=== PATIENT | female | born 1970 | race Caucasian/White ===

== ENCOUNTER 2017-09-24 12:06 | Emergency (ER) | payer OTHER ==
--- OUTSIDE RECORDS SUMMARY | 2017-09-24 12:17 | XMS REPORT ---
:1970 Author Organization eClinicalWorks Care Team Providers Name Role Phone Miguel David Provider Role Unavailable Allergies No Known Allergies Problems Problem Type Condition Code Onset Dates Condition Status Problem BMI 45.0-49.9, adult Z68.42 Active Problem History of breast cancer Z85.3 Active Problem Allergic rhinitis, seasonal J30.2 Active Problem Hypothyroidism E03.9 Active Problem Vitamin D deficiency E55.9 Active Problem Elevated LFTs R94.5 Active Problem Benign essential hypertension I10 Active Problem Colon polyp K63.5 Active Problem Depression with anxiety F41.8 Active Problem Obstructive sleep apnea G47.33 Active Assessment BMI 45.0-49.9, adult Z68.42 Active Assessment Colon polyp K63.5 Active Assessment Elevated LFTs R94.5 Active Assessment Depression with anxiety F41.8 Active Assessment Obstructive sleep apnea G47.33 Active Assessment Vitamin D deficiency E55.9 Active Assessment Benign essential hypertension I10 Active Assessment History of breast cancer Z85.3 Active Assessment Hypothyroidism E03.9 Active Medications Medication Code Code Instructions Start End Status Dosage System Date Date Tamoxifen [facility] 99833261927 20 MG Orally Active 1 tablet Citrate Once a day Zestoretic [facility] 19153284752 10-12.5 MG September 09, Active 1 tablet Orally Once a [address] [facility] 46896361553 5 MG Orally Inactive 1 tablet Once a day Blakely Thyroid [facility] 88669383565 120 MG Orally Active 1 tablet Once a day on an empty stomach Nasonex [facility] 32852045509 50 MCG/ACT Active 2 sprays Nasally Once a in each day nostril Vitamin D-[address] [facility] 87224210817 1000 UNIT Active 2 capsule Orally 3 TIMES A day Singulair [facility] 23214200212 10 MG Orally Active 1 tablet Once a day in the evening CPAP Machine [facility] 0 max pressure 9 Active nightly cm of water Blakely Thyroid [facility] 38913706042 90 MG Orally Inactive 1 tablet Once a day on an empty stomach Ferrous ND 01925627091 325 (65 Fe) MG Active 1 tablet Sulfate Orally Once a day Results No Known Results Summary Purpose eClinicalWorks Submission
--- OUTSIDE RECORDS SUMMARY | 2017-09-24 12:17 | XMS REPORT ---
:1970 Author Organization [facility] Address [address] [place] [address] Dr. Muro [address] [place] [address] Care Team Providers Name Role Phone MAURY MOSLEY Unavailable Unavailable Problems This patient has no known problems. Allergies, Adverse Reactions, Alerts This patient has no known allergies or adverse reactions. Medications This patient has no known medications. Results Test Description Test Time Test Comments Text Results Atomic Results Result Comments TISSUE EXAM 2017-02-22 10:02:00 Surgical Pathology Report Case: [id number] Authorizing Provider: Maury Mosley MD Collected: 02/18/2017 0850 Ordering Location: [facility] Received: 02/18/2017 1041 SERVICES Pathologist: Corinne Morales MD Specimens: A) - Breast, Right, right mastectomy scar B) - Breast, Left, left mastectomy scar C) - Mass, left breast A. SKIN, RIGHT BREAST REGION, SCAR, EXCISION: - CICATRIX - FOREIGN BODY GRANULOMATOUS REACTIONB. SKIN, LEFT BREAST REGION, SCAR, EXCISION: - CICATRIX - FOREIGN BODY GRANULOMATOUS REACTIONC. BREAST, LEFT, MASS, EXCISION: - MATURE ADIPOSE TISSUE COMPATIBLE WITH LIPOMA - FOREIGN BODY GRANULOMATOUS REACTION - FAT NECROSIS Signing Pathologist Direct Phone Line: [phone] signed by Corinne Morales MD on 02/22/2017 at 10:02 Nuñez the sections examined from all the specimens, no atypia or malignancy is Identified. A. [id number] B. [id number]. 75438Cbatywi of breast cancer, hypertrophic scarA. Right mastectomy scar. B. Left mastectomy scar. C. Left breast massSpecimen is received in three containers of formalin all labeled with the patient's information.Specimen A: Labeled "right mastectomy scar" consists of an elongated excision of jay-white skin measuring 5 x 0.4 x 0.4 cm. The specimen is unoriented. No suspicious areas are seen. The skin is entirely submitted in A1.Specimen B: Labeled "left mastectomy scar" consists of a linear excision of unoriented jay-white skin measuring 4 x 0.2 x 0.2 cm. No suspicious areas are seen. The specimen is entirely submitted in B1.Specimen C: Labeled "left breast" consists of a 54 gm unoriented breast biopsy measuring 6.5 x 4 x 3 cm. The surface is intact and entirely inked black. The specimen is serially sectioned from one end to the other showing a homogeneous, fat, necrotic cut surface. No other abnormalities are identified. Process Improvement Engineer sections are submitted in C1-C6. CARLOS/cody Hewitt C. Performed. [facility], Department of Pathology, [address] [place] [address], BASIC METABOLIC PANEL 2017-01-31 11:24:00 Test Item Value Reference Range Comments SODIUM (BEAKER) (test 142 meq/L 136-145 cppn=350) POTASSIUM (BEAKER) (test 4.6 meq/L 3.5-5.1 ncep=186) CHLORIDE (BEAKER) (test 108 meq/L 98-107 kfgb=643) CO2 (BEAKER) (test znds=779) 29 meq/L 22-29 BLOOD UREA NITROGEN (BEAKER) 12 mg/dL 7-21 (test lwcw=198) CREATININE (BEAKER) (test 0.84 mg/dL 0.57-1.25 uwoo=288) GLUCOSE RANDOM (BEAKER) 110 mg/dL 70-105 (test fhzh=615) CALCIUM (BEAKER) (test 8.8 mg/dL 8.4-10.2 ekde=664) EGFR (BEAKER) (test 74 mL/min/1.73 sq m ESTIMATED GFR IS NOT fupj=8005) ACCURATE CREATININE CLEARANCE IN PREDICTING GLOMERULAR FILTRATION RATE. ESTIMATED GFR IS NOT APPLICABLE FOR DIALYSIS PATIENTS. CBC (HEMOGRAM ONLY)2017-01-31 10:50:00 Test Item Value Reference Range Comments WHITE BLOOD CELL COUNT (BEAKER) (test gjua=158) 7.2 K/ L 3.5-10.5 RED BLOOD CELL COUNT (BEAKER) (test tqct=163) 3.89 M/ L 3.93-5.22 HEMOGLOBIN (BEAKER) (test wjaj=505) 11.6 GM/DL 11.2-15.7 HEMATOCRIT (BEAKER) (test kbal=955) 36.6 % 34.1-44.9 MEAN CORPUSCULAR VOLUME (BEAKER) (test hnhb=126) 94.1 fL 79.4-94.8 MEAN CORPUSCULAR HEMOGLOBIN (BEAKER) (test 29.8 pg 25.6-32.2 pvnp=142) MEAN CORPUSCULAR HEMOGLOBIN CONC (BEAKER) (test 31.7 GM/DL 32.2-35.5 yhos=307) RED CELL DISTRIBUTION WIDTH (BEAKER) (test 13.1 % 11.7-14.4 hthp=089) PLATELET COUNT (BEAKER) (test mtlt=781) 230 K/CU MM 150-450 MEAN PLATELET VOLUME (BEAKER) (test cymx=631) 9.9 fL 9.4-12.3 NUCLEATED RED BLOOD CELLS (BEAKER) (test 0 /100 WBC 0-0 fxlb=793) TISSUE [id number] 13:13:00Surgical Pathology Report Case: [id number] Authorizing Provider: Maury Mosley MD Collected: 10/01/2016 1206 Ordering Location: [facility] Received: 10/01/2016 1601 SERVICES Pathologist: Corinne Morales MD Specimens: A) - Breast, Right B) -Breast, Left C) - Breast, Left, left breast fat necrosis D) - Breast, Right, right breast fat necrosis E) - Abdomen,abdominal scar A. SKIN, RIGHT BREAST REGION, EXCISION : - SKIN AND DERMIS WITH CICATRIX - FIBROADIPOSE TISSUE B. SKIN, LEFT BREAST REGION, EXCISION: - SKIN AND DERMIS, NO PATHOLOGIC CHANGE C. BREAST, LEFT, FAT NECROSIS EXCISION: - FAT NECROSIS - STROMAL FIBROSIS - SKIN AND DERMIS WITH CICATRIX D. BREAST, RIGHT, FAT NECROSIS EXCISION: - FAT NECROSIS - STROMAL FIBROSIS - SKIN AND DERMIS WITH CICATRIX E. SKIN , ABDOMINAL REGION, EXCISION: - SKIN AND DERMIS WITH ACUTE AND CHRONIC INFLAMMATION AND ABSCESS FORMATION In the sections examined from all specimens , no malignancy is seen. CG/Julio. [id number]. 61805B. 23098W. 71075 E. 09452Qzusnqg of right breast cancer, hypertrophy abdominal scarA. Right breast; B. Left breast; C. Left breast fat necrosis; D. Right breast fat necrosis; E. Abdominal scarAll specimens are received labeled with the patient's information.Specimen A : Received in formalin labeled "breast, right" is a 124 gm, 13.5 x7.0 x 3.5 cm mayes-white to yellow-jay irregular portion of fibroadipose tissue with an attached 12.0x 6.5 cm pale jay wrinkled ellipse of skin. Sectioning reveals predominantly fibroadipose tissue. Nodiscrete masses are identified. Process Improvement Engineer sections are submitted in cassettes A1-A4.Specimen B:Received in formalin labeled "breast, left" is a 10.5 x 4.5 x 0.5 cm pale jay irregular wrinkled portion of skin. Sectioning reveals no discrete masses. Process Improvement Engineer sections are submitted in cassette B1. Specimen C: Received in formalin labeled "breast, left", description "left breast fat necrosis"is a 78 gm, 8.0 x 5.5 x 5.0 cm mayes-white to yellow-jay irregular portion of fibroadipose tissue with an attached 7.1 x 3.0 cm pale jay irregular wrinkled portion of skin. Sectioning reveals yellow-tanfat necrosis. No discrete masses are identified. Process Improvement Engineer sections are submitted in cassettes C1-C4. Specimen D: Received in formalin labeled "breast, right", description "right breast fat necrosis" is a 44 gm, 8.0 x 7.0 x 2.5 cm mayes-white to yellow-jay irregular portion of fibroadipose tissue with an attached 6.0 x 1.0 cm pale jay wrinkled strip of skin. Sectioning reveals yellow-jay fat necrosis. No discrete masses are identified. Process Improvement Engineer sections are submitted in cassettes D1-D4. Specimen E : Received in formalin labeled "abdomen", description "abdominal scar" is a 20.5 x 1.6 cm pale jay wrinkled strip of skin excised to a depth of 2.5 cm. Sectioning reveals focal fat necrosis and light jay mucoid material. No discrete masses are identified. Process Improvement Engineer sections are submitted in cassettes E1-E3. DB/Madan. - E. Performed.BASIC METABOLIC [id number] 16:19:00 Test Item Value Reference Range Comments SODIUM (BEAKER) (test 139 meq/L 136-145 zjoy=923) POTASSIUM (BEAKER) (test 3.9 meq/L 3.5-5.1 jpuc=493) CHLORIDE (BEAKER) (test 110 meq/L 98-107 zwia=033) CO2 (BEAKER) (test 23 meq/L 22-29 vqfa=075) BLOOD UREA NITROGEN 16 mg/dL 7-21 (BEAKER) (test nsjr=507) CREATININE (BEAKER) (test 0.86 mg/dL 0.57-1.25 umno=948) GLUCOSE RANDOM (BEAKER) 94 mg/dL 70-105 (test hoev=993) CALCIUM (BEAKER) (test 8.7 mg/dL 8.4-10.2 zpwh=341) EGFR (BEAKER) (test 72 mL/min/1.73 sq m ESTIMATED GFR IS NOT vnqz=2711) ACCURATE CREATININE CLEARANCE IN PREDICTING GLOMERULAR FILTRATION RATE. ESTIMATED GFR IS NOT APPLICABLE FOR DIALYSIS PATIENTS. CBC (HEMOGRAM ONLY)2016-09-13 16:05:00 Test Item Value Reference Range Comments WHITE BLOOD CELL COUNT (BEAKER) (test gltv=566) 8.3 K/ L 4.0-10.0 RED BLOOD CELL COUNT (BEAKER) (test sifj=121) 3.99 M/ L 4.00-5.00 HEMOGLOBIN (BEAKER) (test cfxs=427) 12.4 GM/DL 12.0-15.0 HEMATOCRIT (BEAKER) (test oast=128) 36.8 % 36.0-45.0 MEAN CORPUSCULAR VOLUME (BEAKER) (test rgrz=125) 92.1 fL 82.0-99.0 MEAN CORPUSCULAR HEMOGLOBIN (BEAKER) (test 31.1 pg 27.0-33.0 hfdu=632) MEAN CORPUSCULAR HEMOGLOBIN CONC (BEAKER) (test 33.8 GM/DL 32.0-36.0 abah=317) RED CELL DISTRIBUTION WIDTH (BEAKER) (test 14.9 % 10.3-14.2 nzqf=698) PLATELET COUNT (BEAKER) (test balc=528) 194 K/CU MM 150-430 MEAN PLATELET VOLUME (BEAKER) (test ucmc=290) 7.4 fL 6.5-10.5 NUCLEATED RED BLOOD CELLS (BEAKER) (test 0 /100 WBC 0-0 luye=180) 0.00
--- OUTSIDE RECORDS SUMMARY | 2017-09-24 12:17 | XMS REPORT | Clinical Summary ---
:1970 Author Organization [facility] Address [address] [place] [address] Care Team Providers Name Role Phone Asked, No Pcp Primary Care Provider Unavailable Allergies Active Allergy Reactions Severity Noted Date Comments Clindamycin Rash Low 10/21/2015 Penicillins 08/25/2015 Found on allergy testing Current Medications Prescription Sig. Disp. Refills Start End Status Date Date amLODIPine (NORVASC) 5 Take 5 mg by Active mg tablet mouth. cream base no.124, Testosterone 0.2% Cream 20 g 1 Active bulk, cream Apply pea size amount to vulva QHS x 2 wks, then twice weekly 7 ARMOUR THYROID 120 mg TK 1 T PO QD OES 1 Active tablet 8 W82-wfcumyhawuek Take 1 tablet by 90 tablet 3 Active calcium-B6 (FOLTX) mouth daily. 8 2-1.13-25 mg tablet tamoxifen (NOLVADEX) Take 1 tablet 90 tablet 3 Active 20 MG chemo tablet (20 mg total) by 8 019 mouth daily for 360 days. levothyroxine Take by mouth. Discontinued (SYNTHROID, LEVOXYL) 018 100 mcg tablet tamoxifen (NOLVADEX) Discontinued 20 MG chemo tablet 6 017 tamoxifen (NOLVADEX) Take 1 tablet 90 tablet 3 20 MG chemo (20 mg total) by 7 018 tabletIndications: mouth daily. 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 methylPREDNISolone Take 4 mg by Discontinued (MEDROL) 4 MG tablet mouth daily. 017 S08-fustlmdkanad Take 1 tablet by 90 tablet 0 Discontinued calcium-B6 (FOLTX) mouth daily. 7 018 2-1.13-25 mg tablet TAMOXIFEN CITRATE Take by mouth. 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 07/08/2017 Office Visit Oncology Shala David MD 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 (Primary Dx) 07/08/2017 Orders Only Oncology Shala David MD 07/08/2017 Telephone Oncology Shala David MD 01/21/2017 Orders Only Oncology Shala David MD 01/21/2017 Telephone Oncology Shala David MD 01/07/2017 Office Visit Oncology Basilio Dewey HER2-negative carcinoma of [place] right breast (Primary Dx) Shala David MD 01/07/2017 Refill Oncology Shala David MD 12/24/2016 Documentation Oncology Jeanine Cohen MA after 09/23/2016 Social History Tobacco Use Types Packs/Day Years Used Date Never Smoker Smokeless Tobacco: Never Used Sex Assigned at Date Recorded Not on file Last Filed Vital Signs Vital Sign Reading Time Taken Blood Pressure 173/82 07/08/2017 9:24 AM CDT Pulse 92 07/08/2017 9:24 AM CDT Temperature 37 C (98.6 F) 07/08/2017 9:24 AM CDT Respiratory Rate - - Oxygen Saturation - - Inhaled Oxygen Concentration - - Weight 123 kg (272 lb 1 oz) 07/08/2017 9:24 AM CDT Height 165.1 cm (5' 5") 07/08/2017 9:24 AM CDT Body Mass Index 45.27 07/08/2017 9:24 AM CDT Plan of Treatment Date Type Specialty Care Team Description 01/15/2018 Office Visit Oncology Shala David MD [address] [place] [address] Health Maintenance Due Date Last Done Comments CERVICAL CANCER SCREENING 1993 INFLUENZA VACCINE 10/30/2017 Procedures Procedure Name Priority Date/Time Associated Comments Diagnosis CBC WITH PLATELET AND Routine 07/08/2017 10:08 Results for this DIFFERENTIAL AM CDT procedure are in the results section. COMPREHENSIVE Routine 07/08/2017 10:08 Results for this METABOLIC PANEL AM CDT procedure are in the results section. CBC WITH PLATELET AND Routine 01/15/2017 12:00 DIFFERENTIAL AM CDT after 09/23/2016 Results CBC with platelet and differential (07/08/2017 10:08 AM)Only the most recent of2 resultswithin the time period is included. WBC 8.4 3.8 - 10.8 Thousand/uL [facility] [place] RBC 4.40 3.80 - 5.10 Million/uL [facility] [place] HGB 12.9 11.7 - 15.5 g/dL [facility] [place] HCT 38.9 35.0 - 45.0 % [facility] [place] MCV 88.4 80.0 - 100.0 fL [facility] [place] MCH 29.3 27.0 - 33.0 pg [facility] [place] MCHC 33.2 32.0 - 36.0 g/dL [facility] [place] RDW 13.4 11.0 - 15.0 % [facility] [place] Platelet count 267 140 - 400 Thousand/uL [facility] [place] MPV 11.6 7.5 - 12.5 fL [facility] [place] Neutrophils, absolute 5,880 1,500 - 7,800 cells/uL [facility] [place] Lymphocytes, absolute 2,041 850 - 3,900 cells/uL [facility] [place] Monocytes, absolute 328 200 - 950 cells/uL [facility] [place] Eosinophils, absolute 118 15 - 500 cells/uL [facility] [place] Basophils, absolute 34 0 - 200 cells/uL [facility] [place] Neutrophils 70 % [facility] [place] Lymphocytes 24.3 % [facility] [place] Monocytes 3.9 % [facility] [place] Eosinophils 1.4 % [facility] [place] Basophils + RC 0.4 % [facility] [place] Narrative Performed At FASTING: UNKNOWN [facility] Resulting Agency Comment Performing Organization Information: Site ID: [id number] Name: [facility] Address: [address] [place] [id number] Director: Gabrielle Parker MD Performing Organization Address City/State/Zipcode Phone Number [facility] [place] [address] [phone] Comprehensive metabolic panel (07/08/2017 10:08 AM) Glucose 139 (H) 65 - 99 mg/dL [facility] Comment: [place] Fasting reference interval For someone without known diabetes, a glucose value >125 mg/dL indicates that they may have diabetes and this should be confirmed with a follow-up test. BUN, whole blood 13 7 - 25 mg/dL [facility] [place] Creatinine 0.84 0.50 - 1.10 mg/dL [facility] [place] EGFR Non-Afr. Senegalese 85 > OR=60 [facility] mL/min/1.73m2 [place] EGFR 98 > OR=60 [facility] mL/min/1.73m2 [place] BUN/creatinine ratio NOT APPLICABLE 6 - 22 (calc) [facility] [place] Sodium 139 135 - 146 mmol/L [facility] [place] Potassium 3.8 3.5 - 5.3 mmol/L [facility] [place] Chloride 102 98 - 110 mmol/L [facility] [place] CO2 27 20 - 31 mmol/L [facility] [place] Calcium 9.0 8.6 - 10.2 mg/dL [facility] [place] Protein 6.8 6.1 - 8.1 g/dL [facility] [place] Albumin, S 3.6 3.6 - 5.1 g/dL [facility] [place] Globulin, total 3.2 1.9 - 3.7 g/dL [facility] (calc) [place] Albumin/globulin ratio 1.1 1.0 - 2.5 (calc) [facility] [place] Total bilirubin 0.3 0.2 - 1.2 mg/dL [facility] [place] Alkaline phosphatase 51 33 - 115 U/L [facility] [place] AST 37 (H) 10 - 30 U/L [facility] [place] ALT 42 (H) 6 - 29 U/L [facility] [place] Narrative Performed At FASTING: UNKNOWN [facility] Resulting Agency Comment Performing Organization Information: Site ID: [id number] Name: [facility] Address: [address] [place] [address] Director: Gabrielle Parker MD Performing Organization Address City/State/Zipcode Phone Number [facility] [place] [address] [place] [address] after 09/23/2016 Insurance Payer Benefit Plan / Group Subscriber ID Type Phone Address [employer] OPEN ACCESS/NETWORK xxxxxxxxxxx HMO Home: [id number] [phone] [address]
--- OUTSIDE RECORDS SUMMARY | 2017-09-24 12:17 | XMS REPORT | Clinical Summary ---
:1970 Author Organization [facility] Address [address] [place] [address] Phone Care Team Providers Name Role Phone Unavailable Primary Care Provider Unavailable Allergies Active Allergy Reactions Severity Noted Date Comments Clindamycin Hives, Rash Low 10/21/2015 Penicillins Hives, Rash Low 08/25/2015 Found on allergy testing Current Medications Prescription Sig. Disp. Refills Start Date End Date Status levothyroxine Take 150 mcg by Active (SYNTHROID, mouth Every LEVOTHROID) 150 morning on an MCG tablet empty stomach. amLODIPine Take 5 mg by Active (NORVASC) 5 MG mouth nightly . tablet MULTIVIT/IRON/FA/K Take by mouth Active /HERB NO.244 daily. (ALIVE WOMEN'S ENERGY ORAL) INTRAUTERINE by Intrauterine Active DEVICE, IUD, IU route. montelukast Take 10 mg by 02/01/20 Discontinued (SINGULAIR) 10 mg mouth nightly. 17 tablet vortioxetine 10 mg Take 10 mg by 02/01/20 Discontinued Tab mouth daily. 17 tamoxifen Take 20 mg by 10/02/19 Discontinued (NOLVADEX) 20 MG mouth 2 (two) 17 tablet times daily. docusate sodium Take 1 capsule 28 capsule 0 10/01/2016 10/16/19 (COLACE) 100 MG (100 mg total) by 17 capsule mouth 2 (two) times daily for 14 days. sennosides 15 mg Take 1 tablet by 14 tablet 0 10/01/2016 10/16/19 Tab tablet mouth nightly for 17 14 days. sulfamethoxazole-t Take 1 tablet 28 tablet 0 10/01/2016 10/16/19 rimethoprim (160 mg of 17 (BACTRIM DS) trimethoprim 800-160 mg per total) by mouth 2 tablet (two) times daily for 14 days. tamoxifen Take 20 mg by 02/19/20 Discontinued (NOLVADEX) 20 MG mouth nightly . 17 tablet Active Problems Problem Noted Date Personal history of malignant neoplasm of breast 02/18/2017 Breast abscess 10/21/2015 Cancer of right female breast (HCC) 09/19/2015 Encounters Date Type Specialty Care Team Description 02/18/2017 Hospital Encounter Maury Thompson MD 02/18/2017 Anesthesia Event Jacinda Mendoza CRNA 02/18/2017 Procedure Pass 02/18/2017 Surgery Donna, REVISION,BREAST Maury Conley MD RECONSTRUCTION 01/31/2017 Hospital Encounter Cardiology Maury Thompson MD 01/31/2017 Hospital Encounter Pre-Admission Melissa Thompson MD 01/31/2017 Anesthesia Event Pre-Admission Chris August MD 01/04/2017 Orders Only General Surgery Aida Lyn 10/01/2016 Hospital Encounter Maury Thompson MD 10/01/2016 Procedure Pass 10/01/2016 Surgery Donna REVISION,SCAR TORSO Maury Conley MD 09/28/2016 Anesthesia Event Galina Shipley after 09/23/2016 Social History Tobacco Use Types Packs/Day Years Used Date Never Smoker Smokeless Tobacco: Never Used Alcohol Use Drinks/Week oz/Week Comments Yes rare Sex Assigned at Date Recorded Not on file Last Filed Vital Signs Vital Sign Reading Time Taken Blood Pressure 132/66 02/18/2017 4:25 PM PHARMACIST IN CHARGE OWNER Pulse 71 02/18/2017 4:25 PM PHARMACIST IN CHARGE OWNER Temperature 36.8 C (98.2 F) 02/18/2017 4:25 PM PHARMACIST IN CHARGE OWNER Respiratory Rate 16 02/18/2017 4:25 PM PHARMACIST IN CHARGE OWNER Oxygen Saturation 96% 02/18/2017 4:25 PM PHARMACIST IN CHARGE OWNER Inhaled Oxygen Concentration - - Weight 125.9 kg (277 lb 8 oz) 01/31/2017 9:55 AM CDT Height 165.1 cm (5' 5") 01/31/2017 9:55 AM CDT Body Mass Index 46.18 01/31/2017 9:55 AM CDT Plan of Treatment Not on file Procedures Procedure Name Priority Date/Time Associated Diagnosis Comments RECONSTRUCTION,ABDOMIN 02/18/2017 8:00 AM History of breast [place] PHARMACIST IN CHARGE OWNER cancer Special Needs (LIPOSUCTION MACHINE) BIOPSY/EXCISION,SOFT TISSUE TORSO 02/18/2017 8:00 AM PHARMACIST IN CHARGE OWNER History of breast ANTERIOR cancer Special Needs (LIPOSUCTION MACHINE) GRAFT,FAT-BREAST 02/18/2017 8:00 AM PHARMACIST IN CHARGE OWNER History of breast cancer Special Needs (LIPOSUCTION MACHINE) REVISION,BREAST RECONSTRUCTION 02/18/2017 8:00 AM PHARMACIST IN CHARGE OWNER History of breast cancer Special Needs (LIPOSUCTION MACHINE) REVISION,BREAST RECONSTRUCTION 10/01/2016 9:30 AM CDT RIGHT BREAST CANCER , HYPERTROPHIED ABDOMINAL SCAR (86466, [id number], 84179H0, 41293E5) REVISION,SCAR TORSO 10/01/2016 9:30 AM CDT RIGHT BREAST CANCER, HYPERTROPHIED ABDOMINAL SCAR (39759, 61808H9, 69761S7, 32700W2) after 09/23/2016 Results Tissue Exam (02/18/2017 8:50 AM)Only the most recent of2 resultswithin the time period is included. Component Value Ref Range Case Report Surgical Pathology Report Case: [id number] Authorizing Provider:Maury hTompson MD Collected: 02/18/2017 0850 Ordering Location: [facility] Received: 02/18/2017 1041 SERVICES Pathologist: Corinne Morales MD Specimens: A) - Breast, Right, right mastectomy scar B) - Breast, Left, left mastectomy scar C) - Mass, left breast DIAGNOSIS A. SKIN, RIGHT BREAST REGION, SCAR, EXCISION: - CICATRIX - FOREIGN BODY GRANULOMATOUS REACTION B. SKIN, LEFT BREAST REGION, SCAR, EXCISION: - CICATRIX - FOREIGN BODY GRANULOMATOUS REACTION C. BREAST, LEFT, MASS, EXCISION: - MATURE ADIPOSE TISSUE COMPATIBLE WITH LIPOMA - FOREIGN BODY GRANULOMATOUS REACTION - FAT NECROSIS Signing Pathologist Direct Phone Line: [phone] COMMENT In the sections examined from all the specimens, no atypia or malignancy is Identified. CPT Code(s) A.43412 B.23029 C.67702 CLINICAL HISTORY History of breast cancer, hypertrophic scar SPECIMEN SOURCE A. Right mastectomy scar. B. Left mastectomy scar. C. Left breast mass GROSS DESCRIPTION Specimen is received in three containers of formalin all labeled with the patient's information. Specimen A: Labeled "right mastectomy scar" consists of an elongated excision of jay-white skin measuring 5 x 0.4 x 0.4 cm. The specimen is unoriented. No suspicious areas are seen. The skin is entirely submitted in A1. Specimen B: Labeled "left mastectomy scar" consists of a linear excision of unoriented jay-white skin measuring 4 x 0.2 x 0.2 cm. No suspicious areas are seen. The specimen is entirely submitted in B1. Specimen C: Labeled "left breast" consists of a 54 gm unoriented breast biopsy measuring 6.5 x 4 x 3 cm. The surface is intact and entirely inked black. The specimen is serially sectioned from one end t o the other showing a homogeneous, fat, necrotic cut surface. No other abnormalities are identified. [employer] sections are submitted in C1-C6. CG /ew MICROSCOPIC DESCRIPTION A. - C. Performed. Professional component was performed [facility], at Department of Pathology, [address] [place] [address], [place] [address], Specimen Performing Laboratory Tissue - Breast, Right; Tissue - Breast, [facility] Left; Tissue - Mass [address] [place] [id number] CBC (Hemogram only) (01/31/2017 10:31 AM) Component Value Ref Range WBC 7.2 3.5 - 10.5 K/L RBC 3.89 (L) 3.93 - 5.22 M/L Hemoglobin 11.6 11.2 - 15.7 GM/DL Hematocrit 36.6 34.1 - 44.9 % MCV 94.1 79.4 - 94.8 fL MCH 29.8 25.6 - 32.2 pg MCHC 31.7 (L) 32.2 - 35.5 GM/DL RDW 13.1 11.7 - 14.4 % Platelets 230 150 - 450 K/CU MM MPV 9.9 9.4 - 12.3 fL nRBC 0 0 - 0 /100 WBC Specimen Performing Laboratory Blood [address] [address] Basic Metabolic Panel (01/31/2017 10:31 AM) Component Value Ref Range Sodium 142 136 - 145 meq/L Potassium 4.6 3.5 - 5.1 meq/L Chloride 108 (H) 98 - 107 meq/L CO2 29 22 - 29 meq/L BUN 12 7 - 21 mg/dL Creatinine 0.84 0.57 - 1.25 mg/dL Glucose 110 (H) 70 - 105 mg/dL Calcium 8.8 8.4 - 10.2 mg/dL EGFR 74Comment: ESTIMATED GFR IS NOT ACCURATE mL/min/1.73 sq m CREATININE CLEARANCE IN PREDICTING GLOMERULAR FILTRATION RATE. ESTIMATED GFR IS NOT APPLICABLE FOR DIALYSIS PATIENTS. Specimen Performing Laboratory Blood [facility] [address] [address] after 09/23/2016
[2017-09-24 12:47] LABS: Absolute Lymphocytes (CBC) 2.9 K/uL (0.7-4.9); Absolute Monocytes 0.5 K/uL (0.1-1.3); Absolute Neutrophil 6.4 K/uL (1.8-8.0); Basophils % 0.8 % (0-1.3); Eosinophils % 1.9 % (0-4.4); Hematocrit 40.8 % (36.0-45.0); Lymphocytes % 28.9 % (15.3-44.8); MCH 29.7 pg (27.0-35.0); MCV 92.1 fL (80-100); MPV 8.7 fL (7.6-11.3); Monocytes % 4.6 % (3.3-12.3); RBC Red Blood Cell Count 4.43 M/uL (3.86-4.86)
[2017-09-24 13:07] LABS: Albumin 3.3 g/dL (3.4-5.0); Bilirubin Direct 0.1 mg/dL (0-0.2); Bilirubin Total 0.5 mg/dL (0.2-1.0); Potassium 4.1 mmol/L (3.5-5.1); Protein, Total 7.6 g/dL (6.4-8.2)
--- NOTE | 2017-09-24 14:49 | RAD REPORT ---
EXAM DESCRIPTION: CT - Abdomen Pelvis W Contrast - 09/24/2017 2:30 pm CLINICAL HISTORY: Right lower quadrant pain, nausea, history of breast cancer and hypertension, prio r mastectomy and hernia repair COMPARISON: CT study May 2013 TECHNIQUE: Biphasic, helical CT imaging of the abdomen and pelvis was performed following 100 ml non -ionic IV contrast. No oral contrast administered. All CT scans are performed using dose optimization technique as appropriate and may include automated exposure control or mA/KV adjustment according to patient size. FINDINGS: No suspicious findings in the lung bases. No pericardial thickening or effusion. The liver, spleen, and pancreas show no focal findings. Liver shows a mild diffuse fatty infiltration . No gallbladder or biliary tree abnormality. Gallstones can be occult on CT imaging. Symmetric renal function is seen with no hydronephrosis or suspicious renal mass. No pyelonephritis o r acute renal parenchymal process seen. No focal abnormality of the contracted urinary bladder. IUD i s in place within a normal sized uterus. Numerous nabothian cysts are present. No suspicious left ova lavon finding. Right ovary contains several cysts or follicles largest 2.1 cm. No cyst rupture or hemo rrhage identifiable. Right ovary is only slightly more prominent than seen in 2014. No dilated bowel loops or bowel wall thickening. Appendix is normal. No free air or pneumatosis. No f ree fluid. No peritoneal or retroperitoneal infectious/inflammatory stranding. No mass or bulky lymp hadenopathy. Postsurgical changes are noted from lower abdominal wall hernia repair. Approximately 4. 5 centimeter area of fatty tissue is extending through the abdominal wall. This is partially covered by the mesh material. A congested or edematous appearance is seen in the deep subcutaneous fatty tiss ues along each lateral mid and lower abdomen. No adrenal abnormality. No acute or destructive bone process. IMPRESSION: No appendicitis or other acute GI process identifiable. Right ovary contains several cysts up to 2.1 cm in size. No cyst rupture or hemorrhage changes identi fiable. Postsurgical changes are noted from prior hernia repair in the lower abdominal wall. There is a midli ne hernia defect still present but appears to be covered by the mesh material. This is approximately 4-5 cm in size. This is doubtful as a source of right lower quadrant pain symptoms. Nonspecific congestion or edema in the deep subcutaneous fat over each lateral lateral margin of the abdomen. Deeper oblique musculature shows no hematoma or mass. Mild fatty infiltration of the liver. No acute gallbladder or biliary tree finding seen.
[2017-09-24 14:58] LABS: Urine Bacteria <20 /HPF (<20); Urine RBC <5 /HPF (NONE SEEN)
[2017-09-24 15:00] LABS: Urine Culture Reflex Order NOT NEEDED
[2017-09-24 15:03] LABS: Urine Blood NEGATIVE (NEG); Urine Glucose NEGATIVE (NEG); Urine Protein NEGATIVE (NEG); Urine pH 6.5 (5.0-7.0)
--- NOTE | 2017-09-24 16:00 | EDPHYS ---
Physician Documentation [facility] Name: Crissy Mac Age: 47 yrs Sex: Female : 1970 Arrival Date: 09/24/2017 Time: 12:09 Bed 15 Private MD: [facility] ED Physician Gagandeep Smith HPI: 09/24 15:49 This 47 yrs old Female presents to ER via Ambulatory with complaints of gs Abdominal Pain. 15:49 The patient presents with abdominal pain right lower quadrant. Onset: The gs symptoms/episode began/occurred 2 day(s) ago, and became worse and became persistent. Associated signs and symptoms: Pertinent positives: nausea and vomiting, Pertinent negatives: fever. The symptoms are described as constant. Modifying factors: the symptoms are aggravated by touching the area. Severity of pain: At its worst the pain was moderate in the emergency department the pain is unchanged. The patient has experienced similar episodes in the past, a few times. SECURITY ASSISTANT: 12:16 LMP N/A - control method sv Historical: - Allergies: 12:16 PENICILLINS; sv - Home Meds: 12:16 tamoxifen oral oral [Active]; [place] Thyroid Oral [Active]; Lisinopril Oral [Active]; sv - PMHx: 12:16 Breast cancer; Hypertension; Hypothyroidism; sv - PSHx: 12:16 ; Hernia repair; MASTECTOMY; sv - Immunization history:: Adult Immunizations up to date. - Social history:: Smoking status: Patient/guardian denies using tobacco. - Ebola Screening: : No symptoms or risks identified at this time. ROS: 15:49 All other systems are negative. gs Exam: 15:49 Head/Face: Normocephalic, atraumatic. Eyes: Pupils equal round and reactive to light, gs extra-ocular motions intact. Lids and lashes normal. Conjunctiva and sclera are non-icteric and not injected. Cornea within normal limits. Periorbital areas with no swelling, redness, or edema. ENT: Nares patent. No nasal discharge, no septal abnormalities noted. Tympanic membranes are normal and external auditory canals are clear. Oropharynx with no redness, swelling, or masses, exudates, or evidence of obstruction, uvula midline. Mucous membranes moist. Neck: Trachea midline, no thyromegaly or masses palpated, and no cervical lymphadenopathy. Supple, full range of motion without nuchal rigidity, or vertebral point tenderness. No Meningismus. Chest/axilla: Normal chest wall appearance and motion. Nontender with no deformity. No lesions are appreciated. Cardiovascular: Regular rate and rhythm with a normal S1 and S2. No gallops, murmurs, or rubs. Normal PMI, no JVD. No pulse deficits. Respiratory: Lungs have equal breath sounds bilaterally, clear to auscultation and percussion. No rales, rhonchi or wheezes noted. No increased work of breathing, no retractions or nasal flaring. Back: No spinal tenderness. No costovertebral tenderness. Full range of motion. Skin: Warm, dry with normal turgor. Normal color with no rashes, no lesions, and no evidence of cellulitis. MS/ Extremity: Pulses equal, no cyanosis. Neurovascular intact. Full, normal range of motion. Neuro: Awake and alert, GCS 15, oriented to person, place, time, and situation. Cranial nerves II-XII grossly intact. Motor strength 5/5 in all extremities. Sensory grossly intact. Cerebellar exam normal. Normal gait. 15:49 Constitutional: The patient appears alert, awake. 15:49 Abdomen/GI: Palpation: moderate abdominal tenderness, in the right lower quadrant, rebound tenderness, is not appreciated, Indicators: Rovsing's sign is negative. Vital Signs: 12:16 BP 140 / 75; Pulse 83; Resp 18; Temp 97.5; Pulse Ox 98% ; Weight 122.47 kg; Height 5 sv ft. 5 in. (165.10 cm); Pain 3/10; 13:15 BP 114 / 66; Pulse 73; Resp 19; Pulse Ox 98% on R/A; rb1 14:14 BP 111 / 71; Pulse 81; Resp 18; Pulse Ox 99% on R/A; rb1 15:12 BP 121 / 73; Pulse 81; Resp 18; Pulse Ox 97% on R/A; rb1 16:00 BP 119 / 68; Pulse 74; Resp 18; Pulse Ox 99% on R/A; rb1 12:16 Body Mass Index 44.93 (122.47 kg, 165.10 cm) sv MDM: 12:24 Patient medically screened. gs 15:49 Differential diagnosis: appendicitis, non-specific abd pain, pancreatitis. Data gs reviewed: vital signs, nurses notes. Response to treatment: the patient's symptoms have markedly improved after treatment, and as a result, I will discharge patient. 09/24 12:25 Order name: Basic Metabolic Panel; Complete Time: 15: 09/24 12:25 Order name: CBC with Diff; Complete Time: 15: 09/24 12:25 Order name: Hepatic Function; Complete Time: 15: 09/24 12:25 Order name: Lipase; Complete Time: 15: 09/24 12:25 Order name: Urine Microscopic Only; Complete Time: 15: 09/24 14:03 Order name: Urine Dipstick--Ancillary (enter results); Complete Time: 16:03 09/24 12:25 Order name: Urine Test (obtain specimen); Complete Time: 16:58 09/24 12:25 Order name: IV Saline Lock; Complete Time: 12:41 09/24 12:25 Order name: Labs collected and sent; Complete Time: 12:41 09/24 12:25 Order name: Urine Dipstick-Ancillary (obtain specimen); Complete Time: 16:58 09/24 12:25 Order name: CT Abd/Pelvis - W/Contrast; Complete Time: 15: 09/24 14:03 Order name: Urine --Ancillary (enter results); Complete Time: 16:03 09/24 15:03 Order name: US Transvaginal Study (Probe); Complete Time: 16:10 gs Administered Medications: No medications were administered Disposition: 09/24/17 15:59 Discharged to Home. Impression: Right lower quadrant pain. - Condition is Stable. - Discharge Instructions: Abdominal Pain, Adult, Ovarian Cyst, [id number]. - Medication Reconciliation Form, Thank You Letter, Antibiotic Education, Prescription Opioid Use form. - Follow up: Private Physician; When: 2 - 3 days; Reason: Re-evaluation by your physician. Signatures: Dispatcher [facility] Crissy Cortés RN RN Patricia Lechuga RN RN rb1 Gagandeep Smith MD MD gs Corrections: (The following items were deleted from the chart) 15:01 15:00 Urine Culture ordered. [facility] 16:30 15:59 09/24/2017 15:59 Discharged to Home. Impression: Right lower quadrant pain. rb1 Condition is Stable. Forms are Medication Reconciliation Form, Thank You Letter, Antibiotic Education, Prescription Opioid Use. Follow up: Private Physician; When: 2 - 3 days; Reason: Re-evaluation by your physician. gs
--- NOTE | 2017-09-24 16:00 | ER ---
Nurse's Notes [facility] Name: Crissy Mac Age: 47 yrs Sex: Female : 1970 Arrival Date: 09/24/2017 Time: 12:09 Bed 15 Private MD: Miguel David Diagnosis: Right lower quadrant pain Presentation: 09/24 12:14 Presenting complaint: Patient states: RLQ pain, clammy started this morning. c/o sv nausea. Transition of care: patient was not received from another setting of care. Onset of symptoms was September 24, 2017. Care prior to arrival: None. 12:14 Method Of Arrival: Ambulatory sv 12:14 Acuity: JULES 3 sv 12:15 Risk Assessment: Do you want to hurt yourself or someone else? Patient reports no rb1 desire to harm self or others. Initial Sepsis Screen: Does the patient meet any 2 criteria? No. Patient's initial sepsis screen is negative. Does the patient have a suspected source of infection? No. Patient's initial sepsis screen is negative. 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 - Social history:: Smoking status: Patient/guardian denies using tobacco. - Ebola Screening: : No symptoms or risks identified at this time. Screenin:15 Abuse screen: Denies threats or abuse. Nutritional screening: No deficits noted. rb1 Tuberculosis screening: No symptoms or risk factors identified. Fall Risk None identified. Assessment: 12:15 General: Appears uncomfortable, obese, Behavior is calm, cooperative, Reports chills rb1 for 12-24 hours, fever for. Pain: Complains of pain in right lower quadrant Pain radiates to right low back Pain currently is 8 out of 10 on a pain scale. Neuro: Level of Consciousness is awake, alert, obeys commands, Oriented to person, place, time, situation. Cardiovascular: Capillary refill < 3 seconds is brisk in bilateral fingers. Respiratory: Airway is patent Respiratory effort is even, unlabored, Respiratory pattern is regular, symmetrical. GI: Bowel sounds present X 4 quads. Abd is soft Abdomen is tender to palpation in right lower quadrant Reports nausea. : No signs and/or symptoms were reported regarding the genitourinary system. Derm: Skin is pink, warm \T\ dry. 13:12 Reassessment: Patient appears in no apparent distress at this time. No changes from rb1 previously documented assessment. 14:11 Reassessment: Patient appears in no apparent distress at this time. Patient and/or rb1 family updated on plan of care and expected duration. Pain level reassessed. Patient is alert, oriented x 3, equal unlabored respirations, skin warm/dry/pink. 15:00 Reassessment: Patient appears in no apparent distress at this time. No changes from rb1 previously documented assessment. at bedside. 16:00 Reassessment: Patient appears in no apparent distress at this time. Patient and/or rb1 family updated on plan of care and expected duration. Pain level reassessed. Patient is alert, oriented x 3, equal unlabored respirations, skin warm/dry/pink. Vital Signs: 12:16 BP 140 / 75; Pulse 83; Resp 18; Temp 97.5; Pulse Ox 98% ; Weight 122.47 kg; Height 5 sv ft. 5 in. (165.10 cm); Pain 3/10; 13:15 BP 114 / 66; Pulse 73; Resp 19; Pulse Ox 98% on R/A; rb1 14:14 BP 111 / 71; Pulse 81; Resp 18; Pulse Ox 99% on R/A; rb1 15:12 BP 121 / 73; Pulse 81; Resp 18; Pulse Ox 97% on R/A; rb1 16:00 BP 119 / 68; Pulse 74; Resp 18; Pulse Ox 99% on R/A; rb1 12:16 Body Mass Index 44.93 (122.47 kg, 165.10 cm) sv ED Course: 12:09 Patient arrived in ED. rg4 12:10 Miguel David DO is Private Physician. rg4 12:15 Triage completed. sv 12:15 Patient has correct armband on for positive identification. Bed in low position. Call rb1 light in reach. Side rails up X 1. Pulse ox on. NIBP on. 12:17 Gagandeep Smith MD is Attending Physician. gs 12:18 Arm band placed on left wrist. Patient placed in an exam room, on a stretcher. sv 12:26 Radiology exam delayed due to lab results not completed at this time. (BUN/Creatinine) vr test not completed at this time. 12:27 Patricia Aleman, RN is Primary Nurse. rb1 12:40 Initial lab(s) drawn, by me, sent to lab. Inserted saline lock: 18 gauge in left 3 antecubital area, using aseptic technique. Blood collected. 12:50 Radiology exam delayed due to lab results not completed at this time. (BUN/Creatinine). vr 13:28 Radiology exam delayed due to test not completed at this time. vr 14:[address] vr 14:30 CT Abd/Pelvis - W/Contrast In Process Unspecified. EDMS 15:04 Patient taken to ultrasound. via wheelchair. lc3 15:29 US Transvaginal Study (Probe) In Process Unspecified. EDMS 16:30 No provider procedures requiring assistance completed. IV discontinued, intact, rb1 bleeding controlled, No redness/swelling at site. Pressure dressing applied. Administered Medications: No medications were administered Outcome: 15:59 Discharge ordered by MD. gs 16:30 Patient left the ED. rb1 16:30 Discharged to home ambulatory, with family. rb1 16:30 Condition: stable 16:30 Discharge instructions given to patient, Instructed on discharge instructions, follow up and referral plans. Demonstrated understanding of instructions, follow-up care, Prescriptions given X none Signatures: Dispatcher [employer] EDWA Crissy Cortés, Cherri Ledesma RN vr Harish Hernandez Rebecca, RN RN [facility] Sheila [facility] Gagandeep Smith MD MD
--- NOTE | 2017-09-24 16:04 | RAD REPORT ---
EXAM DESCRIPTION: US - Transvaginal Study Probe - 09/24/2017 3:29 pm CLINICAL HISTORY: Pelvic pain, abdominal pain, possible torsion COMPARISON: None. TECHNIQUE: Endovaginal sonography was performed with ovarian Doppler evaluation performed. FINDINGS: Multiple nabothian cysts are identified in the normal sized uterus. Linear echogenicity in the fundal portion of the endometrial cavity corresponds to a known IUD. This appears to be well pos itioned. No suspicious endometrial or myometrial finding. No abnormal fluid collection in the cul-de-sac. Doppler evaluation shows blood flow within the ovarian stroma. No fallopian tube dilatation. Ovarian cysts are present measuring 2.4 cm on the right and 2.2 cm on the left. No aggressive or suspicious c haracteristics. No mass or abnormal fluid collection in either adnexa. . IMPRESSION: Small ovarian cysts are present. No suspicious ovarian or adnexal finding. Torsion is no t suspected. IUD is in place normally positioned within the fundal endometrial cavity. No suspicious uterine findi ng.
== END 2017-09-24 16:30 | disposition home or self-care (01) ==
LOC: ER 12:06
DX: R10.31 Right lower quadrant pain (principal); I10 Essential (primary) hypertension; E03.9 Hypothyroidism, unspecified; Z85.3 Personal history of malignant neoplasm of breast; Z88.0 Allergy status to penicillin
CPT/HCPCS: 36415; 74177; 76830; 80048; 80076; 81003; 81015; 81025; 83690; 85025; 99284; Q9967

== ENCOUNTER 2022-05-26 11:09 | Emergency (ER) | payer OTHER ==
--- OUTSIDE RECORDS SUMMARY | 2022-05-26 11:16 | XMS REPORT | Continuity of Care Document ---
:1970 Author Organization [facility] t Address [address] [place] [address] Care Team Providers Name Role Phone Asked, No Pcp Primary Care Physician Unavailable Miguel David Attending Clinician Unavailable Ryan RM-CNasrin Attending Clinician Khris Galindo MD Attending Clinician Pob, [facility] Main Attending Clinician Unavailable Vickie Mariee MD Attending Clinician VICKIE MARIEE Attending Clinician Unavailable Doctor Unassigned, [place] Attending Clinician Unavailable Ruth, Jay Dobbs Attending Clinician Unavailable Martín Gordon MD Attending Clinician MARTÍN GORDON Attending Clinician Unavailable Meredith Lopez Attending Clinician Unavailable Chantell Mcgraw MD Attending Clinician Sole Delcid Attending Clinician Unavailable CHANTELL MCGRAW Attending Clinician Unavailable ZAHIDA JOHNSON Attending Clinician Unavailable ALISA LARA Attending Clinician Unavailable Pranav RN, Cait Attending Clinician Unavailable Dhruv LEAHY PhD, Myron Attending Clinician Laura Rollins MD Attending Clinician MAURY MOSLEY Attending Clinician Unavailable Meredith Lopez Admitting Clinician Unavailable REGI DAVID Admitting Clinician Unavailable MAURY MOSLEY Admitting Clinician Unavailable Payers Payer Name Policy Type Policy Number Effective Date Expiration Date S [place] [id number] 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 3-29 st positive positive 00:00: Hospit a 00 l Breast Breast Disease Active [facility] abscess [facility] Cancer of Cancer of Disease Active [facility] right right 6-20 [facility] female female 00:00: Medical breast breast 00 Center Cancer of Cancer of Disease Active [employer] lower-inne lower-inne 10-14 Co llege r quadrant r quadrant 00:00: of of female of female 00 Medi estephania breast breast e (HCCode) (HCCode) Hypothyroi Hypothyroi Disease Active [facility] dism due dism due 10-14 Colleg e to to 00:00: of acquired 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 Essential Essential Disease Active [employer] hypertensi hypertensi 7-16 Co llege on on 00:00: of 00 Medicin e [id number] 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 Benign Benign Problem Common essential essential Spir it hypertensi hypertensi - [facility] on on [facility] Polyp Colon Problem Common colon polyp [facility] Vitamin D Vitamin D Problem Com mon deficiency deficiency Sp char [facility] Hypothyroi Hypothyroi Problem C ommon dism dism [facility] [phone] Elevated Problem Comm on LFTs [facility] Allergic Non-season Problem Com mon rhinitis al [facility] allergic - [facility] rhinitis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) [facility] Allergies, Adverse Reactions, Alerts Allergy Allergy Status Severity Reaction(s) Onset Inactive Treating Comm ents Source Name Type Date Date Clinician Clindamy Drug Active Hives, Rash [facility] Allergy [facility] Medical 00 Center Clindamy Propensi Active Rash Method i estephania ty to 10-20 st adverse 00:00: Hospita reaction 00 l s to drug Penicill Propensi Active Found on Meth desiree ins ty to 08-[address] adverse 00:00: testing Hospita reaction 00 l s to drug Penicill Drug Active Hives, Rash Found on C HI [facility] ins Allergy 08-24 allergy [facility] 00:[facility]: testing Medical 00 Center Penicill Propensi Active Found on Meth desiree ins ty to 08-[address] adverse 00:00: testing Hospita reaction 00 l s to drug Penicill DA Active [facility]IN [facility] ins REACTION 10-21 [facility] [place] morphine DA Active MO HALLUCINATE [facility] 10-21 [facility] 00:[facility]: [facility] [place] Penicill DA Active [facility] ins 10-21 [facility] 00:[facility]: [facility] [place] morphine DA Active MO [facility] 10-21 [facility] 00:[facility]: [facility] [place] Mold Propensi Active HEADACHE [facility] ty to 10-13 [place] adverse 00:00: of reaction 00 Medicin s to e substanc e Penicill Propensi Active [facility] ins ty to 15 [place] adverse 00:00: of reaction 00 Medicin s to e drug NO KNOWN Drug Active [facility] ALLERGIE Class ity of S [facility] amoxicil amoxicil Active Unknown Commo all [place] Spirit - [facility] Social History Social Habit Start Date Stop Date Quantity Comments Source Exposure to Not sure [facility] SARS-CoV-2 [place] [facility] (event) Branch History of Common Spirit - Tobacco Use [facility] History SDOH [facility] Alcohol Frequency [facility] History SDOH [facility] Alcohol Std Medical Cente r Drinks History SDOH [facility] Alcohol Binge Medical [place] [address] Alcohol intake 2017-02-19 2017-02-19 Current drinker [facility]00 of [facility] (finding) History SDOH 2017-01-31 2017-01-[address] [facility] Alcohol Comment 00:00:00 00:00:00 Medical C enter Tobacco use and 2015-08-25 2015-08-[address] Maria Elena kes exposure 00:00:00 00:00:00 Medical Center Sex Ass[birth year] At [birth year] [facility] 00:00:00 00:00:00 Smoking Status Start Date Stop Date Source Unknown if ever smoked [facility] Medical [place] Never Smoker Common Spirit - [facility] Medications Ordered Filled Start Stop Current Ordering Indication Dosage Frequency Signature Comments Components Source Medication Medication Date Date Medication? Clinician (SIG) Name Name tamoxifen 2022-0 2022- Yes [id number] 20mg QD Take 1 [facility] (NOLVADEX) 2-15 05-17 tablet (20 st 20 MG chemo 00:00: 04:59 mg total) Hospita tablet 00 :00 by mouth l daily for 90 days. tamoxifen 2021-04- No [id number] 20mg QD Take 1 [facility] (NOLVADEX) 0-26 02-15 tablet (20 st 20 MG chemo 00:00: 00:00 mg total) Hospita tablet 00 :00 by mouth l daily for 90 days. Mounjaro Sachinantoniajaro 2021-04- No Mounjaro 2.5 2.5 0-10 01-07 2.5 MG/0.5ML MG/0.5ML 00:00: 00:00 MG/0.5ML 00 :00 Mounjaro Mounjaro 2021-04- No Mounjaro 2.5 2.5 0-10 01-07 2.5 MG/0.5ML MG/0.5ML 00:00: 00:00 MG/0.5ML 00 :00 Mounjaro Tiffaniejaro 2021-04- No Mounjaro 2.5 2.5 0-10 01-07 2.5 MG/0.5ML MG/0.5ML 00:00: 00:00 MG/0.5ML 00 :00 Mounjaro Tiffaniejaro 2021-04- No Mounjaro 2.5 2.5 0-10 01-07 2.5 MG/0.5ML MG/0.5ML 00:00: 00:00 MG/0.5ML 00 :00 Spironolact Spironolact 2021-04- No 1{table QD Spironolac one 25 MG one 25 MG 010 02-06 t} tone 25 MG 00:00: 00:00 00 :00 Spironolact Spironolact 2021-04- No 1{table QD Spironolac one 25 MG one 25 MG 0-10 02-06 t} tone 25 MG 00:00: 00:00 00 :00 Spironolact Spironolact 2021-04- No 1{table QD Spironolac one 25 MG one 25 MG 0-10 -08 t} tone 25 MG 00:00: 00:00 00 :00 amLODIPine 2021-0 Yes 5mg Take 5 mg Me thodi (NORVASC) 5 9-[address] mg tablet 09:08: Hospita 32 l phentermine 2021-0 Yes 30mg QD Take 30 mg [facility] 30 MG 9-[address] capsule 09:08: every Hospita 32 morning. l predniSONE 2021-0 2021- No 40mg QD Take 2 Meth desiree (DELTASONE) 8- 08-[address] 20 mg 00:00: 04:59 (40 mg Hospita tablet 00 :00 total) by l mouth daily for 5 days. Lisinopril Lisinopril 0 No 1{table QD Lisinopril 10 MG 10 MG 6-28 t} 10 MG 00:00: 00 Lisinopril Lisinopril 2021-0 No 1{table QD Lisinopril 10 MG 10 MG 6-28 t} 10 MG 00:00: 00 spironolact 2021-0 Yes 25mg QD Take 25 mg [facility] one 6-[address] (ALDACTONE) 00:00: daily. Hosp john 25 MG 00 l tablet lisinopriL 0 Yes 10mg QD Take 10 mg M ethodi (PRINIVIL) 6-[address] 10 mg 00:00: daily. Hospita tablet 00 l Phentermine Phentermine 2021- No 1{capsu QD Phentermin HCl 30 MG HCl 30 MG 3-15 05-14 le} e HCl 30 00:00: 00:00 MG 00 :00 iopamidol 2020-2020- No [id number] 100mL 100 mL, Univers (ISOVUE 11-03 08-05 Intravenou ity o f 370-500 mL) 23:45: 22:41 s, ONCE, 1 [place] injection 00 :00 dose, [facility] al 100 mL 11/03/20 at Branch 1845, Routine amLODIPine 2020-0 Yes 5mg Take 5 mg Me thodi (NORVASC) 5 5-[address] mg tablet 16:28: Hospita 25 l phentermine 2020-0 Yes 30mg QD Take 30 mg [facility] 30 MG 5-[address] capsule 16:28: every Hospita 24 morning. l Phentermine Phentermine 2020-0 No 1{capsu QD Phentermin HCl 37.5 MG HCl 37.5 MG 5-04 le} e HCl 37.5 00:00: MG 00 Phentermine Phentermine 2020-0 No 1{capsu QD Phentermin HCl 37.5 MG HCl 37.5 MG 5-04 le} e HCl 37.5 00:00: MG 00 Phentermine Phentermine 2020-0 No 1{capsu QD Phentermin HCl 37.5 MG HCl 37.5 MG 5-04 le} e HCl 37.5 00:00: MG 00 Phentermine Phentermine 2020-0 No 1{capsu QD Phentermin HCl 37.5 MG HCl 37.5 MG 5-04 le} e HCl 37.5 00:00: MG 00 Phentermine Phentermine 2020-0 No 1{capsu QD Phentermin HCl 37.5 MG HCl 37.5 MG 5-04 le} e HCl 37.5 00:00: MG 00 Phentermine Phentermine 2020-0 No 1{capsu QD Phentermin HCl 37.5 MG HCl 37.5 MG 5-04 le} e HCl 37.5 00:00: MG 00 Phentermine Phentermine 2020-0 No 1{capsu QD Phentermin HCl 37.5 MG HCl 37.5 MG 5-04 le} e HCl 37.5 00:00: MG 00 Phentermine Phentermine 2020-0 No 1{capsu QD Phentermin HCl 37.5 MG HCl 37.5 MG 5-04 le} e HCl 37.5 00:00: MG 00 Phentermine Phentermine 2020-0 No 1{capsu QD Phentermin HCl 37.5 MG HCl 37.5 MG 5-04 le} e HCl 37.5 00:00: MG 00 tamoxifen 2019-0 2020- No [id number] 20mg QD Take 1 Meth desiree (NOLVADEX) 12-27 tablet (20 st 20 MG chemo 00:00: 04:59 mg total) Hospita tablet 00 :00 by mouth l daily for 360 days .hormone receptor positive breast cancer. [facility] Yes Miguel 1 tablet Com mon Thyroid Thyroid 12-13 David on an Spirit 00:00: empty - [facility]I [address] sat-saturday [facility] (120+15=13 Medical 5) not on Center sat-sun Hydrochloro Hydrochloro 2019-0 Yes Miguel 1 tablet Common thiazide thiazide 11-17 David Spirit 00:00: - CHI 00 [facility] Lisinopril Lisinopril 2019-0 Yes Miguel 1 tablet Common 11-17 David Spirit 00:00: - [facility]I 00 [facility] lisinopril- 2019-0 Yes 1{tbl} Take 1 Tab Joe hydrochloro 6-11 by mouth Daphnie ege thiazide 18:18: daily. of (PRINZIDE, 25 Medicin ZESTORETIC) e 10-12.5 MG per tablet Cholecalcif Yes Take by [employer] [facility] (D3 6-11 mouth. College ADULT OR) 18:18: of 25 Medicin e thyroid 0 Yes 120mg Take 120 [facility] (ARMOUR 6-11 mg by [place] THYROID) 18:15: mouth of 120 MG 11 daily. Medicin tablet e Vortioxetin 2020- No Take by Roman soriano H[facility] 09-09- mouth. [place] (BRINTELLIX 18:14: 00:00 of ) 10 MG 28 :00 Medicin TABS e montelukast 2020- No 10mg Take 10 mg Joe (SINGULAIR) 09-09 by mouth Col lege 10 MG 18:14: 00:00 daily. of tablet 25 :00 Medicin e amlodipine 2020- No 5mg Take 5 mg B aymarine (NORVASC) 5 09-09 by mouth Col lege MG tablet 18:14: 00:00 daily. of 19 :00 Medicin e levothyroxi 0 2020- No 150ug Take 150 Joe ne -02 04- mcg by [place] (SYNTHROID) 18:14: 00:00 mouth of 150 MCG 16 :00 daily. Medicin tablet e thyroid 0 Yes Take 5 [facility] (ARMOUR 6-11 days a [place] THYROID) 15 00:00: week of MG tablet 00 Medicin e tamoxifen 2019-0 Yes 20mg Take 20 mg Ba agustinor (NOLVADEX) 3-18 by mouth Colle ge 20 MG 00:00: daily. of tablet 00 Medicin e tamoxifen 2020-0 2020- No 20mg QD Take 1 Metho di (NOLVADEX) 318 09-15 tablet (20 st 20 MG chemo 00:00: 04:59 mg total) Hospita tablet 00 :00 by mouth l daily for 180 days. Jovon Nolenalog 2018-0 No 40mg Common (Triamcinol (Triamcinol 6-05 S pirit one) one) 00:00: - CHI 00 [facility] Kenalog Kenalog 2019-0 No 40mg Common (Triamcinol (Triamcinol 6-05 S pirit one) one) 00:00: - CHI 00 [facility] Callumalog Kenalog 2018-0 No 40mg Common (Triamcinol (Triamcinol 6-05 S pirit one) one) 00:00: - CHI 00 [facility] Jovon Kenalog 2018-0 No 40mg Common (Triamcinol (Triamcinol 6-05 S pirit one) one) 00:00: - CHI 00 [facility] Jovon Kenalog 2019-0 No 40mg Common (Triamcinol (Triamcinol 6-05 S pirit one) one) 00:00: - CHI 00 [facility] Jovon Kenalog 2019-0 No 40mg Common (Triamcinol (Triamcinol 6-05 S pirit one) one) 00:00: - CHI 00 [facility] Jovon Kenalog 2019-0 No 40mg Common (Triamcinol (Triamcinol 6-05 S pirit one) one) 00:00: - CHI 00 [facility] miscellaneo 2019-0 Yes [id number] Wear Right [facility] medical 5-[address] supply mis 00:00: compressio Hospita 00 n sleeve l and glove miscellaneo 2019-0 Yes [id number] Wear Right [facility] medical 5-[address] supply mis 00:00: compressio Hospita 00 n sleeve l and glove Callumalog Kenalog 2017- No 40mg Common (Triamcinol (Triamcinol 1-01 S pirit one) one) 00:00: - CHI 00 [facility] Kenalog Kenalog 2017 No 40mg Common (Triamcinol (Triamcinol 1-01 S pirit one) one) 00:00: - CHI 00 [facility] Jovon Sigala 2017-04 No 40mg Common (Triamcinol (Triamcinol 1-01 S pirit one) one) 00:00: - CHI 00 [facility] Jovon Sigala 2017-04 No 40mg Common (Triamcinol (Triamcinol 1-01 S pirit one) one) 00:00: - [facility]I 00 [facility] Jov[facility] 2017-04 No 40mg Common (Triamcinol (Triamcinol 1-01 S pirit one) one) 00:00: - [facility]I 00 [facility] 2017-04 No 40mg Common (Triamcinol (Triamcinol 1-01 S pirit one) one) 00:00: - [facility]I 00 [facility] Jovon 2017-04 No 40mg Common (Triamcinol (Triamcinol 1-01 S pirit one) one) 00:00: - CHI 00 [facility] [id number] Yes 1{tbl} QD Take 1 Me thodi olate 4-[address] calcium-B6 00:00: mouth Hospit a (FOLTX) 00 daily. l 2-1.13-25 mg tablet [id number] Yes 1{tbl} QD Take 1 Me thodi olate 4-[address] calcium-B6 00:00: mouth Hospit a (FOLTX) 00 daily. l 2-1.13-25 mg tablet ARMOUR Yes TK 1 T PO Method i THYROID 120 3-[address] mg tablet 00:00: Hospita 00 l ARMOUR Yes TK 1 T PO Method i THYROID 120 3-[address] mg tablet 00:00: Hospita 00 l levothyroxi 2016-04 Yes 150ug Take [address] ne 1-20 mcg by [facility] (SYNTHROID, 18:11: mouth Medic al LEVOTHROID) 54 Every Center 150 MCG morning on tablet an empty stomach. amLODIPine 2016-04 Yes 5mg QD Take [address] (NORVASC) 5 1-20 by mouth Luke s MG tablet 18:11: nightly . Med ical [address] [place] [address] MULTIVIT/IR 2016-04 Yes QD Take by [facility] St ON/FA/K/HER 1-20 mouth [facility] B NO.244 18:11: daily. Medical ([address] WOMEN'S ENERGY ORAL) INTRAUTERIN 2016-04 Yes by [facility] St E DEVICE, 1-20 Intrauteri Luke s IUD, IU 18:11: ne route. [address] cream base 2016-04- No Testostero Methodi no.124, 0-09 05-14 ne 0.2% st bulk, cream 00:00: 00:00 CreamApply Hospita 00 :00 pea size l amount to vulva QHS x 2 wks, then twice weekly sulfamethox 2019- No 1{tbl} Take 1 Tab Joe azole-trime 06-2511 by mouth Col lege thoprim 00:00: 00:00 two times of (BACTRIM 00 :00 daily. Medicin DS, SEPTRA e DS) 800-160 MG per tablet sulfamethox 2020- No 1{tbl} Take 1 Tab Joe azole-trime 06-21 06-11 by mouth Col lege thoprim 00:00: 00:00 two times of (BACTRIM 00 :00 daily. Medicin DS, SEPTRA e DS) 800-160 MG per tablet minocycline 2015-04 2020- No 100mg Take 1 Tab [facility] (DYNACIN) 1-11 by mouth Colle ge 100 MG 00:00: 00:00 two times of tablet 00 :00 daily. Medicin e sulfamethox 2015-04 2020- No 1{tbl} Take 1 Tab Joe azole-trime 0-11 by mouth Col lege thoprim 00:00: 00:00 two times of (BACTRIM 00 :00 daily. Medicin DS) 800-160 e MG per tablet CPAP CPAP Yes Miguel nightly Common Machine Machine David [facility] Zestoretic Zestoretic Yes Miguel 1 tablet Common David [facility] Metformin Metformin Yes Miguel 1 tablet Common HCl HCl Advid with a Spirit [facility] Nasonex Nasonex Yes Miguel 2 sprays Com mon David in each Spirit nostril - [facility] Tamoxifen Tamoxifen Yes Miguel 1 tablet Common Citrate Citrate David [facility] Ferrous Ferrous Yes Miguel 1 tablet Com mon Sulfate Sulfate David [facility] Singulair Singulair Yes Miguel 1 tablet Common David in the Spirit evening [facility] Hart Hart Yes Miguel TAKE 1 Common Thyroid Thyroid David TABLET BY Spi rit MOUTH - CHI DAILY ON [facility] Vitamin D-3 Vitamin D-3 Yes Miguel 2 capsule Common David [facility] Tamoxifen Tamoxifen No 1{table QD Tamoxifen Citrate 20 Citrate 20 t} Citrate 20 MG MG MG Lisinopril Lisinopril No 1{table QD Lisinopril 10 MG 10 MG t} 10 MG Singulair Singulair No 1{table QD Singulair 10 MG 10 MG t_in_th 10 MG e_eveni ng} metFORMIN metFORMIN No metFORMIN HCl 500 MG HCl 500 MG HCl 500 MG [facility] No Hart Thyroid 15 Thyroid 15 Thyroid 15 MG MG MG hydroCHLORO hydroCHLORO No 1{table QD hydroCHLOR thiazide thiazide t} Othiazide 12.5 MG 12.5 MG 12.5 MG [facility] No 1{table QD Hart Thyroid 120 Thyroid 120 t_on_an Thyroid MG MG _empty_ 120 MG stomach } metFORMIN metFORMIN No 1{table BID metFORMIN HCl 1000 MG HCl 1000 MG t_with_ HCl 1000 a_meal} MG Nasonex 50 Nasonex 50 No 2{spray QD Nasonex 50 MCG/ACT MCG/ACT s_in_ea MCG/ACT ch_nost ril} Ferrous Ferrous No 1{table QD Ferrous Sulfate 325 Sulfate 325 t} Sulfate (65 Fe) MG (65 Fe) MG 325 (65 Fe) MG Vitamin D-3 Vitamin D-3 No 2{capsu TID Vitamin 1000 UNIT 1000 UNIT le} D-3 1000 UNIT Sertraline Sertraline No 1{table QD Sertraline HCl 50 MG HCl 50 MG t} HCl 50 MG CPAP CPAP No CPAP Machine max Machine max Machine pressure 9 pressure 9 max cm of water cm of water pressure 9 cm of water [facility] No 1{table QD Hart Thyroid 15 Thyroid 15 t_on_an Thyroid 15 MG MG _empty_ MG stomach } Zestoretic Zestoretic No 1{table QD Zestoretic 10-12.5 MG 10-12.5 MG t} 10-12.5 MG Lisinopril Lisinopril No 1{table QD Lisinopril 10 MG 10 MG t} 10 MG Tamoxifen Tamoxifen No 1{table QD Tamoxifen Citrate 20 Citrate 20 t} Citrate 20 MG MG MG Nasonex 50 Nasonex 50 No 2{spray QD Nasonex 50 MCG/ACT MCG/ACT s_in_ea MCG/ACT ch_nost ril} Singulair Singulair No 1{table QD Singulair 10 MG 10 MG t_in_th 10 MG e_eveni ng} Zestoretic Zestoretic No 1{table QD Zestoretic 10-12.5 MG 10-12.5 MG t} 10-12.5 MG Ferrous Ferrous No 1{table QD Ferrous Sulfate 325 Sulfate 325 t} Sulfate (65 Fe) MG (65 Fe) MG 325 (65 Fe) MG [facility] No Hart Thyroid 15 Thyroid 15 Thyroid 15 MG MG MG Zestoretic Zestoretic No 1{table QD Zestoretic 10-12.5 MG 10-12.5 MG t} 10-12.5 MG CPAP CPAP No CPAP Machine max Machine max Machine pressure 9 pressure 9 max cm of water cm of water pressure 9 cm of water hydroCHLORO hydroCHLORO No 1{table QD hydroCHLOR thiazide thiazide t} Othiazide 12.5 MG 12.5 MG 12.5 MG metFORMIN metFORMIN No 1{table TID metFORMIN HCl 500 MG HCl 500 MG t_with_ HCl 500 MG a_meal} [facility] No 1{table QD Hart Thyroid 120 Thyroid 120 t_on_an Thyroid MG MG _empty_ 120 MG stomach } [facility] No Hart Thyroid 15 Thyroid 15 Thyroid 15 MG MG MG Vitamin D-3 Vitamin D-3 No 2{capsu TID Vitamin 1000 UNIT 1000 UNIT le} D-3 1000 UNIT Lisinopril Lisinopril No 1{table QD Lisinopril 10 MG 10 MG t} 10 MG hydroCHLORO hydroCHLORO No 1{table QD hydroCHLOR thiazide thiazide t} Othiazide 12.5 MG 12.5 MG 12.5 MG Lisinopril Lisinopril No 1{table QD Lisinopril 10 MG 10 MG t} 10 MG Hart Hart No Hart Thyroid 15 Thyroid 15 Thyroid 15 MG MG MG Singulair Singulair No 1{table QD Singulair 10 MG 10 MG t_in_th 10 MG e_eveni ng} Tamoxifen Tamoxifen No 1{table QD Tamoxifen Citrate 20 Citrate 20 t} Citrate 20 MG MG MG Vitamin D-3 Vitamin D-3 No 2{capsu TID Vitamin 1000 UNIT 1000 UNIT le} D-3 1000 UNIT Zestoretic Zestoretic No 1{table QD Zestoretic 10-12.5 MG 10-12.5 MG t} 10-12.5 MG Nasonex 50 Nasonex 50 No 2{spray QD Nasonex 50 MCG/ACT MCG/ACT s_in_ea MCG/ACT ch_nost ril} metFORMIN metFORMIN No metFORMIN HCl 500 MG HCl 500 MG HCl 500 MG Ferrous Ferrous No 1{table QD Ferrous Sulfate 325 Sulfate 325 t} Sulfate (65 Fe) MG (65 Fe) MG 325 (65 Fe) MG Hart Hart No Hart Thyroid 15 Thyroid 15 Thyroid 15 MG MG MG Hart Hart No 1{table QD Hart Thyroid 120 Thyroid 120 t_on_an Thyroid MG MG _empty_ 120 MG stomach } metFORMIN metFORMIN No 1{table TID metFORMIN HCl 500 MG HCl 500 MG t_with_ HCl 500 MG a_meal} CPAP CPAP No CPAP Machine max Machine max Machine pressure 9 pressure 9 max cm of water cm of water pressure 9 cm of water Zestoretic Zestoretic No 1{table QD Zestoretic 10-12.5 MG 10-12.5 MG t} 10-12.5 MG CPAP CPAP No CPAP Machine max Machine max Machine pressure 9 pressure 9 max cm of water cm of water pressure 9 cm of water Zestoretic Zestoretic No 1{table QD Zestoretic 10-12.5 MG 10-12.5 MG t} 10-12.5 MG Lisinopril Lisinopril No 1{table QD Lisinopril 10 MG 10 MG t} 10 MG Vitamin D-3 Vitamin D-3 No 2{capsu TID Vitamin 1000 UNIT 1000 UNIT le} D-3 1000 UNIT Sertraline Sertraline No 1{table QD Sertraline HCl 50 MG HCl 50 MG t} HCl 50 MG Hart Hart No Hart Thyroid 15 Thyroid 15 Thyroid 15 MG MG MG Zestoretic Zestoretic No 1{table QD Zestoretic 10-12.5 MG 10-12.5 MG t} 10-12.5 MG Ferrous Ferrous No 1{table QD Ferrous Sulfate 325 Sulfate 325 t} Sulfate (65 Fe) MG (65 Fe) MG 325 (65 Fe) MG Nasonex 50 Nasonex 50 No 2{spray QD Nasonex 50 MCG/ACT MCG/ACT s_in_ea MCG/ACT ch_nost ril} metFORMIN metFORMIN No metFORMIN HCl 500 MG HCl 500 MG HCl 500 MG hydroCHLORO hydroCHLORO No 1{table QD hydroCHLOR thiazide thiazide t} Othiazide 12.5 MG 12.5 MG 12.5 MG [facility] No Hart Thyroid 15 Thyroid 15 Thyroid 15 MG MG MG Singulair Singulair No 1{table QD Singulair 10 MG 10 MG t_in_th 10 MG e_eveni ng} Tamoxifen Tamoxifen No 1{table QD Tamoxifen Citrate 20 Citrate 20 t} Citrate 20 MG MG MG Hart Hart No 1{table QD Hart Thyroid 120 Thyroid 120 t_on_an Thyroid MG MG _empty_ 120 MG stomach } Zestoretic Zestoretic No 1{table QD Zestoretic 10-12.5 MG 10-12.5 MG t} 10-12.5 MG Hart Hart No 1{table QD Hart Thyroid 120 Thyroid 120 t_on_an Thyroid MG MG _empty_ 120 MG stomach } Tamoxifen Tamoxifen No 1{table QD Tamoxifen Citrate 20 Citrate 20 t} Citrate 20 MG MG MG Hart Hart No 1{table QD Hart Thyroid 15 Thyroid 15 t_on_an Thyroid 15 MG MG _empty_ MG stomach } hydroCHLORO hydroCHLORO No 1{table QD hydroCHLOR thiazide thiazide t} Othiazide 12.5 MG 12.5 MG 12.5 MG Lisinopril Lisinopril No 1{table QD Lisinopril 10 MG 10 MG t} 10 MG [facility] No Hart Thyroid 15 Thyroid 15 Thyroid 15 MG MG MG CPAP CPAP No CPAP Machine max Machine max Machine pressure 9 pressure 9 max cm of water cm of water pressure 9 cm of water Vitamin D-3 Vitamin D-3 No 2{capsu TID Vitamin 1000 UNIT 1000 UNIT le} D-3 1000 UNIT metFORMIN metFORMIN No metFORMIN HCl 500 MG HCl 500 MG HCl 500 MG Ferrous Ferrous No 1{table QD Ferrous Sulfate 325 Sulfate 325 t} Sulfate (65 Fe) MG (65 Fe) MG 325 (65 Fe) MG Sertraline Sertraline No 1{table QD Sertraline HCl 50 MG HCl 50 MG t} HCl 50 MG Singulair Singulair No 1{table QD Singulair 10 MG 10 MG t_in_th 10 MG e_eveni ng} Nasonex 50 Nasonex 50 No 2{spray QD Nasonex 50 MCG/ACT MCG/ACT s_in_ea MCG/ACT ch_nost ril} metFORMIN metFORMIN No 1{table TID metFORMIN HCl 500 MG HCl 500 MG t_with_ HCl 500 MG a_meal} Tamoxifen Tamoxifen No 1{table QD Tamoxifen Citrate 20 Citrate 20 t} Citrate 20 MG MG MG Lisinopril Lisinopril No 1{table QD Lisinopril 10 MG 10 MG t} 10 MG Singulair Singulair No 1{table QD Singulair 10 MG 10 MG t_in_th 10 MG e_eveni ng} metFORMIN metFORMIN No metFORMIN HCl 500 MG HCl 500 MG HCl 500 MG [facility] No Hart Thyroid 15 Thyroid 15 Thyroid 15 MG MG MG hydroCHLORO hydroCHLORO No 1{table QD hydroCHLOR thiazide thiazide t} Othiazide 12.5 MG 12.5 MG 12.5 MG [facility] No 1{table QD Hart Thyroid 120 Thyroid 120 t_on_an Thyroid MG MG _empty_ 120 MG stomach } metFORMIN metFORMIN No 1{table BID metFORMIN HCl 1000 MG HCl 1000 MG t_with_ HCl 1000 a_meal} MG Nasonex 50 Nasonex 50 No 2{spray QD Nasonex 50 MCG/ACT MCG/ACT s_in_ea MCG/ACT ch_nost ril} Ferrous Ferrous No 1{table QD Ferrous Sulfate 325 Sulfate 325 t} Sulfate (65 Fe) MG (65 Fe) MG 325 (65 Fe) MG Vitamin D-3 Vitamin D-3 No 2{capsu TID Vitamin 1000 UNIT 1000 UNIT le} D-3 1000 UNIT Sertraline Sertraline No 1{table QD Sertraline HCl 50 MG HCl 50 MG t} HCl 50 MG CPAP CPAP No CPAP Machine max Machine max Machine pressure 9 pressure 9 max cm of water cm of water pressure 9 cm of water [facility] Hart No 1{table QD Hart Thyroid 15 Thyroid 15 t_on_an Thyroid 15 MG MG _empty_ MG stomach } Zestoretic Zestoretic No 1{table QD Zestoretic 10-12.5 MG 10-12.5 MG t} 10-12.5 MG Lisinopril Lisinopril No 1{table QD Lisinopril 10 MG 10 MG t} 10 MG Tamoxifen Tamoxifen No 1{table QD Tamoxifen Citrate 20 Citrate 20 t} Citrate 20 MG MG MG Lisinopril Lisinopril No 1{table QD Lisinopril 10 MG 10 MG t} 10 MG Singulair Singulair No 1{table QD Singulair 10 MG 10 MG t_in_th 10 MG e_eveni ng} metFORMIN metFORMIN No metFORMIN HCl 500 MG HCl 500 MG HCl 500 MG [facility] No Hart Thyroid 15 Thyroid 15 Thyroid 15 MG MG MG hydroCHLORO hydroCHLORO No 1{table QD hydroCHLOR thiazide thiazide t} Othiazide 12.5 MG 12.5 MG 12.5 MG [facility] No 1{table QD Hart Thyroid 120 Thyroid 120 t_on_an Thyroid MG MG _empty_ 120 MG stomach } metFORMIN metFORMIN No 1{table BID metFORMIN HCl 1000 MG HCl 1000 MG t_with_ HCl 1000 a_meal} MG Nasonex 50 Nasonex 50 No 2{spray QD Nasonex 50 MCG/ACT MCG/ACT s_in_ea MCG/ACT ch_nost ril} Ferrous Ferrous No 1{table QD Ferrous Sulfate 325 Sulfate 325 t} Sulfate (65 Fe) MG (65 Fe) MG 325 (65 Fe) MG Vitamin D-3 Vitamin D-3 No 2{capsu TID Vitamin 1000 UNIT 1000 UNIT le} D-3 1000 UNIT Sertraline Sertraline No 1{table QD Sertraline HCl 50 MG HCl 50 MG t} HCl 50 MG CPAP CPAP No CPAP Machine max Machine max Machine pressure 9 pressure 9 max cm of water cm of water pressure 9 cm of water [facility] No 1{table QD Hart Thyroid 15 Thyroid 15 t_on_an Thyroid 15 MG MG _empty_ MG stomach } Zestoretic Zestoretic No 1{table QD Zestoretic 10-12.5 MG 10-12.5 MG t} 10-12.5 MG Lisinopril Lisinopril No 1{table QD Lisinopril 10 MG 10 MG t} 10 MG metFORMIN metFORMIN No metFORMIN HCl 500 MG HCl 500 MG HCl 500 MG Tamoxifen Tamoxifen No 1{table QD Tamoxifen Citrate 20 Citrate 20 t} Citrate 20 MG MG MG hydroCHLORO hydroCHLORO No 1{table QD hydroCHLOR thiazide thiazide t} Othiazide 12.5 MG 12.5 MG 12.5 MG Ferrous Ferrous No 1{table QD Ferrous Sulfate 325 Sulfate 325 t} Sulfate (65 Fe) MG (65 Fe) MG 325 (65 Fe) MG Lisinopril Lisinopril No 1{table QD Lisinopril 10 MG 10 MG t} 10 MG Vitamin D-3 Vitamin D-3 No 2{capsu TID Vitamin 1000 UNIT 1000 UNIT le} D-3 1000 UNIT [facility] Hart No 1{table QD Hart Thyroid 120 Thyroid 120 t_on_an Thyroid MG MG _empty_ 120 MG stomach } Hart Hart No Hart Thyroid 15 Thyroid 15 Thyroid 15 MG MG MG [facility] No 1{table QD Hart Thyroid 15 Thyroid 15 t_on_an Thyroid 15 MG MG _empty_ MG stomach } Nasonex 50 Nasonex 50 No 2{spray QD Nasonex 50 MCG/ACT MCG/ACT s_in_ea MCG/ACT ch_nost ril} Zestoretic Zestoretic No 1{table QD Zestoretic 10-12.5 MG 10-12.5 MG t} 10-12.5 MG Lisinopril Lisinopril No 1{table QD Lisinopril 10 MG 10 MG t} 10 MG Singulair Singulair No 1{table QD Singulair 10 MG 10 MG t_in_th 10 MG e_eveni ng} Sertraline Sertraline No 1{table QD Sertraline HCl 50 MG HCl 50 MG t} HCl 50 MG metFORMIN metFORMIN No 1{table BID metFORMIN HCl 1000 MG HCl 1000 MG t_with_ HCl 1000 a_meal} MG CPAP CPAP No CPAP Machine max Machine max Machine pressure 9 pressure 9 max cm of water cm of water pressure 9 cm of water Zestoretic Zestoretic No 1{table QD Zestoretic 10-12.5 MG 10-12.5 MG t} 10-12.5 MG [facility] Hart No 1{table QD Hart Thyroid 120 Thyroid 120 t_on_an Thyroid MG MG _empty_ 120 MG stomach } Tamoxifen Tamoxifen No 1{table QD Tamoxifen Citrate 20 Citrate 20 t} Citrate 20 MG MG MG Hart Hart No 1{table QD Hart Thyroid 15 Thyroid 15 t_on_an Thyroid 15 MG MG _empty_ MG stomach } hydroCHLORO hydroCHLORO No 1{table QD hydroCHLOR thiazide thiazide t} Othiazide 12.5 MG 12.5 MG 12.5 MG Lisinopril Lisinopril No 1{table QD Lisinopril 10 MG 10 MG t} 10 MG Hart Hart No Hart Thyroid 15 Thyroid 15 Thyroid 15 MG MG MG CPAP CPAP No CPAP Machine max Machine max Machine pressure 9 pressure 9 max cm of water cm of water pressure 9 cm of water Vitamin D-3 Vitamin D-3 No 2{capsu TID Vitamin 1000 UNIT 1000 UNIT le} D-3 1000 UNIT metFORMIN metFORMIN No metFORMIN HCl 500 MG HCl 500 MG HCl 500 MG Ferrous Ferrous No 1{table QD Ferrous Sulfate 325 Sulfate 325 t} Sulfate (65 Fe) MG (65 Fe) MG 325 (65 Fe) MG Sertraline Sertraline No 1{table QD Sertraline HCl 50 MG HCl 50 MG t} HCl 50 MG Singulair Singulair No 1{table QD Singulair 10 MG 10 MG t_in_th 10 MG e_eveni ng} Nasonex 50 Nasonex 50 No 2{spray QD Nasonex 50 MCG/ACT MCG/ACT s_in_ea MCG/ACT ch_nost ril} metFORMIN metFORMIN No 1{table TID metFORMIN HCl 500 MG HCl 500 MG t_with_ HCl 500 MG a_meal} Immunizations Ordered Filled Immunization Date Status Comments [facility] e Immunization Name Name SARS-COV-2 COVID-19 2021-03-29 Completed Unive rsity of PFIZER VACCINE 00:00:00 [facility] SARS-COV-2 COVID-19 2021-03-29 Completed Unive rsity of PFIZER VACCINE 00:00:00 [facility] SARS-COV-2 COVID-19 2021-03-29 Completed Unive rsity of PFIZER VACCINE 00:00:00 [facility] Afluria Afluria 2021-01-19 Completed [facility] 11:31:00 [facility] Afluria Afluria 2021-01-19 Completed [facility] - 11:31:00 [facility] Afluria Afluria 2021-01-19 Completed [facility] - 11:31:00 [facility] Afluria Afluria 2021-01-19 Completed [facility] - 11:31:00 [facility] Afluria Afluria 2021-01-19 Completed [facility] - 11:31:00 [facility] Afluria Afluria 2021-01-19 Completed [facility] - 11:31:00 [facility] Afluria Afluria 2021-01-19 Completed [facility] - 11:31:00 [facility] Afluria Afluria 2021-01-19 Completed [facility] - 11:31:00 [facility] Afluria Afluria 2021-01-19 Completed [facility] - 11:31:00 [facility] SARS-COV-2 COVID-19 2020-06-01 Completed Unive rs[facility] of PFIZER VACCINE 00:00:00 [facility] SARS-COV-2 COVID-19 2020-06-01 Completed [facility]ive rsity of PFIZER VACCINE 00:00:00 [facility] SARS-COV-2 COVID-19 2020-06-01 Completed Unive rsity of PFIZER VACCINE 00:00:00 [facility] SARS-COV-2 COVID-19 2020-06-01 Completed [facility]ive rs[facility] of PFIZER VACCINE 00:00:00 [facility] SARS-COV-2 COVID-19 2020-06-01 Completed [facility]ive rsity of PFIZER VACCINE 00:00:00 [facility] SARS-COV-2 COVID-19 2020-04-26 Completed [facility]ive rsity of PFIZER VACCINE 00:00:00 [facility] SARS-COV-2 COVID-19 2020-04-26 Completed [facility]ive rsity of PFIZER VACCINE 00:00:00 [facility] SARS-COV-2 COVID-19 2020-04-26 Completed [facility]ive rsity of PFIZER VACCINE 00:00:00 [facility] SARS-COV-2 COVID-19 2020-04-26 Completed [facility]ive rsity of PFIZER VACCINE 00:00:00 [facility] SARS-COV-2 COVID-19 2020-04-26 Completed [facility] of PFIZER VACCINE 00:[facility] Kenalog Kenalog 2018-09-03 Completed [facility] - (Triamcinolone) (Triamcinolone) 10:01:00 [facility] Adacel (Tdap) Adacel (Tdap) 2018-06-11 Completed [facility] 13:51:00 [facility] Adacel (Tdap) Adacel (Tdap) 2018-06-11 Completed [facility] 13:51:00 [facility] Adacel (Tdap) Adacel (Tdap) 2018-06-11 Completed [facility] 13:51:00 [facility] Adacel (Tdap) Adacel (Tdap) 2018-06-11 Completed [facility] 13:51:00 [facility] Adacel (Tdap) Adacel (Tdap) 2018-06-11 Completed [facility] 13:51:00 [facility] Adacel (Tdap) Adacel (Tdap) 2018-06-11 Completed [facility] 13:51:00 [facility] Adacel (Tdap) Adacel (Tdap) 2018-06-11 Completed [facility] 13:51:00 [facility] Adacel (Tdap) Adacel (Tdap) 2018-06-11 Completed [facility] 13:51:00 [facility] Adacel (Tdap) Adacel (Tdap) 2018-06-11 Completed [facility] 13:51:00 [facility] TDAP > 7 TDAP > 7 2018-06-11 Completed [facility] - Years-Adacel Years-Adacel 00:00:00 [facility] Afluria Afluria 2018-01-30 Completed [facility] - 16:38:00 [facility] Afluria Afluria 2018-01-30 Completed [facility] - 16:38:00 [facility] Afluria Afluria 2018-01-30 Completed [facility] - 16:38:00 [facility] Afluria Afluria 2018-01-30 Completed [facility] - 16:38:00 [facility] Afluria Afluria 2018-01-30 Completed [facility] - 16:38:00 [facility] Afluria Afluria 2018-01-30 Completed [facility] - 16:38:00 [facility] Afluria Afluria 2018-01-30 Completed [facility] - 16:38:00 [facility] Afluria Afluria 2018-01-30 Completed [facility] - 16:38:00 [facility] Afluria Afluria 2018-01-30 Completed [facility] - 16:38:00 [facility] Kenalog Kenalog 2018-01-30 Completed [facility] - (Triamcinolone) (Triamcinolone) 16:29:00 [facility] Vital Signs Vital Name Observation Time Observation Value Comments Source height 2022-01-08 11:30:00 65 [in_i] [facility] weight 2022-01-08 11:30:00 289 [lb_av] [facility] bmi 2022-01-08 11:30:00 48.09 kg/m2 [facility] blood pressure 2022-01-08 11:30:00 125 mm[Hg] [facility] - systolic [facility] blood pressure 2022-01-08 11:30:00 72 mm[Hg] [facility] - diastolic [facility] height 2021-09-26 09:50:00 65 [in_i] [facility] weight 2021-09-26 09:50:00 280 [lb_av] [facility] temperature 2021-09-26 09:50:00 98 [degF] [facility] bmi 2021-09-26 09:50:00 46.59 kg/m2 [facility] blood pressure 2021-09-26 09:50:00 124 mm[Hg] [facility] - systolic [facility] blood pressure 2021-09-26 09:50:00 72 mm[Hg] [facility] - diastolic [facility] height 2021-04-17 14:30:00 65 [in_i] [facility] weight 2021-04-17 14:30:00 283.2 [lb_av] [facility] temperature 2021-04-17 14:30:00 98.2 [degF] [facility] bmi 2021-04-17 14:30:00 47.12 kg/m2 [facility] oximetry 2021-04-17 14:30:00 97 % [facility] respiratory rate 2021-04-17 14:30:00 17 /min Comm on [facility] blood pressure 2021-04-17 14:30:00 154 mm[Hg] [facility] - systolic [facility] blood pressure 2021-04-17 14:30:00 90 mm[Hg] [facility] - diastolic [facility] height 2021-01-19 10:40:00 65 [in_i] [facility] weight 2021-01-19 10:40:00 281.3 [lb_av] Common [facility] temperature 2021-01-19 10:40:00 97.9 [degF] [facility] bmi 2021-01-19 10:40:00 46.81 kg/m2 [facility] oximetry 2021-01-19 10:40:00 97 % [facility] respiratory rate 2021-01-19 10:40:00 18 /min Comm on [facility] blood pressure 2021-01-19 10:40:00 127 mm[Hg] [facility] - systolic [facility] blood pressure 2021-01-19 10:40:00 60 mm[Hg] [facility] - diastolic [facility] Systolic blood 2019-09-10 18:08:00 128 mm[Hg] [facility] pressure Medicine Diastolic blood 2019-09-10 18:08:00 78 mm[Hg] [facility] Medicine Heart rate 2019-09-10 18:08:00 88 /min [facility] Respiratory rate 2019-09-10 18:08:00 16 /min [facility] Body height 2019-09-10 18:08:00 165.1 cm [facility] Body weight 2019-09-10 18:08:00 129.275 kg [facility] BMI 2019-09-10 18:08:00 47.43 kg/m2 [facility] Systolic blood 2019-09-10 18:08:00 128 mm[Hg] [facility] Medicine Diastolic blood 2019-09-10 18:08:00 78 mm[Hg] [facility] Medicine Heart rate 2019-09-10 18:08:00 88 /min [facility] Respiratory rate 2019-09-10 18:08:00 16 /min [facility] Body height 2019-09-10 18:08:00 165.1 cm [facility] Body weight 2019-09-10 18:08:00 129.275 kg [facility] BMI 2019-09-10 18:08:00 47.43 kg/m2 [facility] Systolic blood 2022-02-20 20:43:00 152 mm[Hg] Method [facility] pressure Diastolic blood 2022-02-20 20:43:00 68 mm[Hg] [facility] pressure Heart rate 2022-02-20 20:43:00 98 /min [facility] Body temperature 2022-02-20 20:43:00 36.72 [facility] Body weight 2022-02-20 20:43:00 133.267 kg [facility] BMI 2022-02-20 20:43:00 48.89 kg/m2 [facility] Body height 2021-12-12 14:02:00 165.1 cm [facility] Oxygen saturation in 2021-12-12 14:02:00 96 /min [facility] Arterial blood by Pulse oximetry Systolic blood 2020-08-12 16:23:00 115 mm[Hg] Method [facility] pressure Diastolic blood 2020-08-12 16:23:00 79 mm[Hg] [facility] pressure Heart rate 2020-08-12 16:23:00 82 /min [facility] Body temperature 2020-08-12 16:23:00 36.67 [facility] Body height 2020-08-12 16:23:00 165.1 cm [facility] Body weight 2020-08-12 16:23:00 122.585 kg [facility] BMI 2020-08-12 16:23:00 44.97 kg/m2 [facility] Procedures Procedure Date / Time Performing Clinician Source Performed SURGICAL PATHOLOGY 2022-02-20 22:05:00 GaryKhris [facility] REQUEST BIOPSY 2022-02-20 21:10:00 Nasrin Davis [facility] US BREAST RIGHT LIMITED 2022-01-18 19:20:[facility] 2021-11-01 17:09:00 [facility] ASSIGNMENT OF BENEFITS 2021-06-10 17:31:53 Doctor Unassigned, No [facility] SARS-COV-2 COVID-19 2021-03-29 21:44:10 Doctor Unassigned, No [facility] [place] VACCINE,0.3ML,IM Name Medical Branch (PFIZER) CONSENT/REFUSAL FOR 2020-11-03 21:30:57 Doctor Unassigned, No [facility] DIAGNOSIS AND TREATMENT Name Medical Branch ASSIGNMENT OF BENEFITS 2020-11-03 21:30:41 Doctor Unassigned, No [facility] US ABDOMEN COMPLETE 2020-09-22 18:34:16 Chatnell [facility] NOTICE OF PRIVACY 2020-09-22 17:51:48 Doctor Unassigned, No [facility] Name Medical Branch CONSENT/REFUSAL FOR 2020-09-22 17:51:13 Doctor Unassigned, No [facility] [place] DIAGNOSIS AND TREATMENT Name Medical Branch ASSIGNMENT OF BENEFITS 2020-09-22 17:50:58 Doctor Unassigned, No [facility] HEPATIC FUNCTION PANEL 2020-08-12 17:26:00 [facility] COMPREHENSIVE METABOLIC 2020-02-12 18:30:00 [facility] PANEL ESTIMATED GFR 2020-02-12 18:30:00 [facility] Plan of Care Planned Activity Planned Date Details Comments Source Future Scheduled 2022-05-18 Pneumococcal Vaccine: [facility] Test 15:16:41 Pediatrics (0 to 5 Hospital Years) and At-Risk Patients (6 to 64 Years) (1 - PCV) [code = Pneumococcal Vaccine: Pediatrics (0 to 5 Years) and At-Risk Patients (6 to 64 Years) (1 - PCV)] Future Scheduled 2022-05-18 Hepatitis C screening [facility] Test 15:16:41 (procedure) [code = Hospital 055110803] Future Scheduled 2022-05-18 Screening for [employer] Test 15:16:41 malignant neoplasm of Hospit al cervix (procedure) [code = 588585886] Future Scheduled 2022-05-18 BREAST CANCER [facility] Test 15:16:41 SCREENING [code = Hospital BREAST CANCER SCREENING] Future Scheduled 2022-05-18 COLONOSCOPY SCREENING [facility] 15:16:41 [code = COLONOSCOPY Hospital SCREENING] Future Scheduled 2022-05-18 INFLUENZA VACCINE Method ist Test 15:16:41 [code = INFLUENZA Hospital VACCINE] Future Scheduled Hepatitis C screening [facility] (procedure) [code = Hospital 204030123] Future Scheduled Screening for [employer] Test malignant neoplasm of Hospit al cervix (procedure) [code = 375543098] Future Scheduled INFLUENZA VACCINE Method ist Test [code = INFLUENZA Hospital VACCINE] Future Scheduled TESTOSTERONE, Ordered: [facility] lege Test FREE/TOTAL SHGB [code 09/10/2019 of Med icine = NOCPT] Future Scheduled FSH [code = 81390-0] Ordered: [facility] Test 09/10/2019 of [facility] Future Scheduled LUTEINIZING HORMONE Ordered: [facility] Test [code = 14955-2] 09/10/2019 [facility] Future Scheduled ESTRADIOL [code = Ordered: [facility] Test 2243-4] 09/10/2019 [facility] Future Scheduled PROLACTIN [code = Ordered: [facility] Test 2842-3] 09/10/2019 of [facility] Future Scheduled TSH [code = 94750-3] Ordered: [facility] Test 09/10/2019 of [facility] Future Scheduled T4 FREE [code = Ordered: [facility] C ollege Test 3024-7] 09/10/2019 of [facility] Future Scheduled DHEA-SULFATE [code = Ordered: [facility] Test 2191-5] 09/10/2019 of [facility] Future Scheduled ANDROSTENEDIONE [code Ordered: [facility] Test = 54053] 09/10/2019 of Medicine Future Scheduled 17-OH PROGESTERONE Ordered: [place] Test LCMS [code = 1668-3] 09/10/2019 of Medi cine Future Scheduled MAMMOGRAM ANNUAL [code B [facility] Test = MAMMOGRAM ANNUAL] of Medic ine Future Scheduled TETANUS SHOT (ADULT) [facility] Test [code = TETANUS SHOT of Medi cine (ADULT)] Future Scheduled BMI FOLLOW UP PLAN [facility] [place] Test [code = BMI FOLLOW UP of Med icine PLAN] Future Scheduled HIV SCREENING [code = Ba [facility] [place] Test HIV SCREENING] of Medicine Future Scheduled CERVICAL CANCER [facility] manda Test SCREENING 3 YEAR of Medicine FOLLOW UP [code = CERVICAL CANCER SCREENING 3 YEAR FOLLOW UP] Future Scheduled FLU VACCINE > 6 MONTHS B [facility] Test [code = FLU VACCINE > of Med icine 6 MONTHS] Encounters Start End Encounter Admission Attending Care Care Encounter Source Date/Time Date/Time Type Type Clinicians Facility Department ID 2021-04-26 Outpatient David, [facility] [id number] Common 12:45:43 Miguel [id number] [facility] 2021-04-26 Outpatient David, [facility] [id number] Common 12:38:05 Miguel [id number] [facility] 2021-04-26 Outpatient David, [facility] [id number] Common 12:18:58 Miguel [id number] [facility] 2021-04-26 Outpatient David, [facility] [id number] Common 11:13:27 Miguel [id number] [facility] 2022-05-16 2022-05-16 Refill Ryan, 1.2.840.1 [id number] Methodi 00:00:00 00:00:00 Nasrin Amaris 47653.1.1 386 s t 3.430.2.7 Hospit a .3.801346 l .8 2022-03-20 2022-03-20 (TEL) [facility] [id number] Co mmon 00:00:00 00:00:00 [facility] 2022-02-20 2022-02-26 Office Ryan, 1.2.840.1 [id number] Methodi 14:30:00 11:59:35 Visit Nasrin Glez 19144.1.1 218 s t 3.430.2.7 Hospit a .3.103745 l .8 2022-02-20 2022-02-20 Lab Nirangel, 1.2.840.1 [id number] Methodi 15:25:00 15:30:00 [address]ia [address] 3.430.2.7 Hospit a .3.253680 l .8 2022-02-20 2022-02-20 Outpatient [facility] [id number] [place] 00:00:00 00:00:[address] 2022-02-20 2022-02-20 Outpatient NIRFORMERLY [facility], [facility] [id number] [place] 00:00:00 00:00:[address] 2022-02-20 2022-02-20 Travel 1.2.840.1 [id number] [id number] Methodi 00:00:00 00:00:[address] 3.430.2.7 0.[facility]7.3.698 [facility]8 [facility] .8 2022-02-08 2022-02-08 [facility], 1.2.840.1 [id number] Methodi 00:00:00 00:00:00 [address] 3.430.2.7 Hospit a .3.387830 l .8 2022-01-24 2022-01-24 [facility] Davis, 1.2.840.1 [id number] Methodi 00:00:00 00:00:00 Only Nasrin Glez 00866.1.1 350 s t 3.430.2.7 Hospit a .3.186470 l .8 2022-01-18 2022-01-18 [facility], 1.2.840.1 [id number] Methodi 13:47:14 23:59:00 Encounter Khris William 58045.1.[address] 3.430.2.7 Hospit a .3.669844 l .8 2022-01-18 2022-01-18 Outpatient NIRLACY, [facility] [id number] [place] 00:00:00 00:00:[address]IS [address] 2022-01-09 2022-01-09 (TEL) [facility] ST[facility] [id number] Co mmon 00:00:00 00:00:00 [facility] - [facility] 2022-01-08 2022-01-08 OFFICE STLMLC STLMLC [id number] Co mmon 00:00:00 00:00:00 VISIT [facility] ESTAB PT - CHI LEVEL 4 [facility] 2021-12-12 2021-12-12 Office Ryan, 1.2.840.1 [id number] Methodi 08:30:00 09:29:28 Visit Nasrin Glez 72021.1.1 609 s t 3.430.2.7 Hospit a .3.997155 l .8 2021-12-12 2021-12-12 Orders Fabi, 1.2.840.1 [id number] Methodi 00:00:00 00:00:00 Only Khris William 24300.1.[address] 3.430.2.7 Hospit a .3.125052 l .8 2021-12-12 2021-12-12 Travel 1.2.840.1 1.2.471.571 [id number] Methodi 00:00:00 00:00:[address] 3.430.2.7 0.2.7.3.698 Ho spita .3.940131 084.8 l .8 2021-12-12 2021-12-12 Outpatient [facility] [id number] [place] 00:00:00 00:00:[address] 2021-12-07 2021-12-07 Telephone Nirlacy, 1.2.840.1 [id number] Methodi 00:00:00 00:00:00 [address]ris [address]ia [address].1.[address] 3.430.2.7 Hospit a .3.892925 l .8 2021-11-01 2021-11-01 Lab Niravath, 1.2.840.1 [id number] Methodi 11:55:00 12:00:00 Khris Nataliia [address]32.1.[address] 3.430.2.7 Hospit a .3.810367 l .8 2021-11-01 2021-11-01 Office Niravath, 1.2.840.1 [id number] Methodi 11:00:00 11:27:53 Visit Khris Nataliia 69125.1.[address] 3.430.2.7 Hospit a .3.076153 l .8 2021-11-01 2021-11-01 [facility] [id number] [place] 00:00:00 00:00:00 KHRIS [address] 2021-11-01 2021-11-01 Orders Niravath, 1.2.840.1 [id number] 2099 [id number] Methodi 00:00:00 00:00:00 Only Khris Nataliia 04252.1.[address] 3.430.2.7 Hospit a .3.095042 l .8 2021-11-01 2021-11-01 Orders Niravath, 1.2.840.1 [id number] 2100 [id number] Methodi 00:00:00 00:00:00 Only Khris Nataliia 91999.1.[address] 3.430.2.7 Hospit a .3.427129 l .8 2021-11-01 2021-11-01 Travel 1.2.840.1 1.2.067.138 7038 [id number] Methodi 00:00:00 00:00:[address] 3.430.2.7 0.2.7.3.698 Ho spita .3.910442 084.8 l .8 2021-11-01 2021-11-01 [facility] [id number] [place] 00:00:00 00:00:00 KHRIS [address] 2021-09-26 2021-09-26 OFFICE STLMLC STLMLC [id number] Co mmon 00:00:00 00:00:00 VISIT Spirit ESTAB PT - CHI LEVEL 4 [facility] 2021-09-21 2021-09-21 Telephone Fabi, 1.2.840.1 [id number] Methodi 00:00:00 00:00:[address] 3.430.2.7 Hospit a .3.103583 l .8 2021-06-14 2021-06-14 (TEL) STLMLC STLMLC [id number] Co mmon 00:00:00 00:00:00 Spirit - [facility] 2021-06-10 2021-06-10 Inspecting Supervisor Bello Roman [facility] Main [facility] 1.2.8 40.114 [id number] Univers 11:45:00 12:00:00 Visit Vickie Mariee 350.1.13.10 ity [facility] 4.[place] PROFESS[place] [phone] dical [address] 2021-06-10 2021-06-10 Outpatient Eamon [facility] [id number] Univers 11:45:00 11:45:[address] [facility] 2021-06-10 2021-06-10 Orders Doctor MADALYN 1.2.840.114 [id number] Univers 00:00:00 00:00:00 Only Unassigned, BEHZAD 350.1.13.10 [facility] 4.2.7.2.686 Stephen as [phone] [place] [address] [address] 2021-04-17 2021-04-17 OFFICE STLC STLC [id number] Co mmon 00:00:00 00:00:00 VISIT EST Spir it PT LEVEL 3 - [facility] 2021-03-29 2021-03-29 Imm/Inj Vaccine, Jay Crawford [facility] MARY KATE MOSELEY 1.2.840.114 [id number] Univers 14:30:00 14:40:00 Visit Martín Gordon 350.1.13.10 ity of PEDIATRIC 4.2.7.2.686 [facility] [phone] [facility] [address] 2021-03-29 2021-03-29 Outpatient MARTÍN [facility] [id number] Univers 14:30:00 14:30:00 ity of [facility] 2021-03-07 2021-03-08 Inpatient BERTHA Arias [facility].01 [id number] [facility] 13:07:00 14:13:00 Meredith [facility] 2021-02-16 2021-02-16 Outpatient FABI [facility] [id number] [place] 00:00:00 00:00:00 KHRIS [address] 2021-01-19 2021-01-19 OFFICE STLMLC STLMLC [id number] Co mmon 00:00:00 00:00:00 VISIT Spirit [facility] PT - CHI LEVEL 4 [facility] 2020-12-29 2020-12-29 Outpatient STLMLC STLMLC [id number] Common 00:00:00 00:00:00 Spirit - [facility] 2020-11-03 2020-11-03 [facility] 1.2.840.114 [id number] [facility] 16:30:00 23:59:00 Encounter Holland Child 350.1.13.10 ity of [place] 4.2.7.2.686 [facility] [id number] [facility] [address] 2020-11-03 2020-11-03 [facility] [id number] [facility] 07:11:00 07:11:00 Sole [facility] 2020-11-03 2020-11-03 [facility] [id number] Univers 00:00:00 00:00:[address] [facility] 2020-10-11 2020-10-11 Outpatient SUGAR JOHNSON [id number] [place] 10:00:00 10:00:00 ZAHIDA venegas 2020-09-22 2020-09-22 [facility] 1.2.840.114 8 [id number] [facility] 12:50:47 23:59:00 Encounter Holland Child 350.1.13.10 ity [facility] 4.2.7.2.686 [facility] [id number] [address] 2020-09-22 2020-09-22 [facility] 1.2.840.114 8 [id number] 12:50:47 23:59:00 Encounter M Danyell 350.1.13.10 [place] 4.2.7.2.686 [place] [id number] [facility] 2020-09-22 2020-09-22 [facility] [id number] Univers 00:00:00 00:00:[address] [facility] 2020-08-15 2020-08-15 Outpatient STLMLC STLMLC [id number] Common 00:00:00 00:00:00 [facility] 2020-08-12 2020-08-12 Lab Fabi, 1.2.840.1 [id number] 2099 [id number] Methodi 12:20:36 12:25:36 Khris William [address]498[address]1.[address] 3.430.2.7 Hospit a .3.174417 l .8 2020-08-12 2020-08-12 Office Nirlacy, 1.2.840.1 [id number] 2100 [id number] Methodi 11:21:00 12:15:04 Visit Khris William [address]143.1.[address] 3.430.2.7 Hospit a .3.443792 l .8 2020-08-12 2020-08-12 Orders Niravath, 1.2.840.1 [id number] 2099 [id number] Methodi 00:00:00 00:00:00 Only Khris Nataliia 82804.1.[address] 3.430.2.7 Hospit a .3.310368 l .8 2020-08-12 2020-08-12 Orders Claytonavath, 1.2.840.1 [id number] 2099 [id number] Methodi 00:00:00 00:00:00 Only Khris William 75604.1.[address] 3.430.2.7 Hospit a .3.369387 l .8 2020-08-12 2020-08-12 Travel 1.2.840.1 1.2.445.670 8063 [id number] Methodi 00:00:00 00:00:[address] 3.430.2.7 0.2.7.3.698 Ho spita .3.743010 084.8 l .8 2020-08-09 2020-08-09 Outpatient STLMLC STLMLC [id number] Common 00:00:00 00:00:00 [facility] 2020-08-02 2020-08-02 Outpatient STLMLC STLMLC [id number] Common 00:00:00 00:00:00 [facility] 2020-06-29 2020-06-29 Outpatient STLMLC STLMLC [id number] Common 00:00:00 00:00:00 [facility] 2020-06-09 2020-06-09 Outpatient STLMLC STLMLC [id number] Common 00:00:00 00:00:00 [facility] 2020-06-01 2020-06-01 Outpatient Eamon [facility] [id number] Univers 14:30:00 14:30:00 [facility] 2020-05-17 2020-05-17 Outpatient Eamon [facility] [id number] Univers 11:40:00 11:40:00 [facility] 2020-04-26 2020-04-26 Outpatient Eamon [facility] [id number] [id number] Univers 11:00:00 11:00:00 [facility] 2020-04-11 2020-04-11 Outpatient STLMLC STLMLC [id number] Common 00:00:00 00:00:00 [facility] 2020-03-22 2020-03-22 Outpatient STLMLC STLMLC [id number] Common 00:00:00 00:00:00 [facility] 2020-02-12 2020-02-12 Lab Fabi, 1.2.840.1 [id number] 2100 [id number] Methodi 12:29:03 12:34:03 Khris William [address]3591.1.[address] 3.430.2.7 Hospit a .3.846071 l .8 2020-02-12 2020-02-12 Office Fabi, 1.2.840.1 [id number] 2100 [id number] Methodi 11:16:27 12:22:32 Visit Khris William 21060.1.[address] 3.430.2.7 Hospit a .3.695936 l .8 2020-02-12 2020-02-12 Travel 1.2.840.1 1.2.169.827 3196 [id number] Methodi 00:00:00 00:00:[address] 3.430.2.7 0.2.7.3.698 Ho spita .3.254220 084.8 l .8 2019-12-28 2019-12-28 Orders Ruppenthal, 1.2.840.1 [id number] Methodi 00:00:00 00:00:00 Only Cait 53094.1.[address] 3.430.2.7 Hospit a .3.194343 l .8 2019-12-28 2019-12-28 Orders Ruppenthal, 1.2.840.1 [id number] Methodi 00:00:00 00:00:00 Only Cait 84291.1.[address] 3.430.2.7 Hospit a .3.338413 l .8 2019-12-21 2019-12-21 Refill Dhruv, 1.2.840.1 [id number] Methodi 00:00:00 00:00:[address] 3.430.2.7 Hospit a .3.150425 l .8 2019-12-14 2019-12-14 [facility] [id number] Common 16:40:00 16:40:[address] [facility] 2019-11-17 2019-11-17 Outpatient [facility] [id number] Common 15:28:00 15:28:[address] [facility] 2019-09-10 2019-09-10 Office Laura Rollins [facility] 1.2.840.114 74 [id number] 12:44:38 13:14:38 Visit AMBULATOR 350.1.13.21 Y 0.2.7.2.686 [id number] 310 2019-09-10 2019-09-10 Office Ria, Laura [facility] 1.2.840.114 74 [id number] [facility] 12:44:38 13:14:38 Visit AMBULATOR 350.1.13.21 College Y 0.2.7.2.686 of [id number] [facility] 310 e 2019-09-10 2019-09-10 Outpatient [facility] 29 [id number] Common 10:45:00 10:45:[address] [facility] 2019-06-11 2019-06-11 Outpatient [facility] 29 [id number] Common 10:00:00 10:00:[address] [facility] 2019-06-03 2019-06-03 Outpatient [facility] [id number] Common 13:58:00 13:58:[address] [facility] 2019-03-23 2019-03-23 Outpatient [facility] [id number] Common 11:45:00 11:45:[address] [facility] 2019-01-28 2019-01-28 Outpatient [facility] 28 [id number] Common 16:30:00 16:30:[address] [facility] 2019-01-22 2019-01-22 Outpatient [facility] [id number] Common 09:11:00 09:11:[address] [facility] 2018-09-11 2018-09-11 Outpatient [facility] [id number] Common 09:30:00 09:30:[address] [facility] 2018-06-11 2018-06-11 Outpatient [facility]ina [facility] 22 [id number] Common 13:30:00 13:30:[address] [facility] 2017-10-30 2017-10-30 Outpatient [place]ina [facility] 14 [id number] Common 10:00:00 10:00:[address] [facility] 2017-09-09 2017-09-09 Outpatient Lucina [facility] 14 [id number] Common 09:30:00 09:30:[address] [facility] Results Test Description Test Time Test Comments Results Result Comments Source Surgical pathology request 2022-02-21 22:24:36 Test Item Value Reference Range Interpretation Comme nts Case number (test code = 0989910) [id number] Surgical pathology report (test code = See link below for PDF Lab R eport 2253) Result status (test code = 7527898) This is Final Report for [id number] 4277[facility] [id number] 00:00:00 Test Item Value Reference Range Interpretation Comments TSH (test code = 1.850 uIU/mL See_Comment [Automated message] 47961-1) The system [employer] generated this result transmitted ref erence range: 0.450-4. 500 uIU/mL. The ref erence range was not u sed to interpret this result as normal/abnor mal. Thyroxine (T4) (test 8.4 ug/dL See_Comment [Autom ated message] code = 3026-2) The system [employer] generated this result transmitted ref erence range: 4.5-12.0 ug/dL. The refe rence range was not u sed to interpret this result as normal/abnor mal. T3 Uptake (test code 16 % See_Comment L [Autom ated message] = 3050-2) The system [employer] generated this result transmitted ref erence range: 24-39 %. The reference range was not used to int erpret this result as normal/abnormal . Free Thyroxine Index 1.3 1.2-4.9 (test code = 57421-9) Testosterone,Free and [id number] 00:00:00 Test Item Value Reference Range Interpretation Comments Testosterone (test code 133 ng/dL See_Comment H [Au tomated message] = 2986-8) The system [employer] generated this result transmitted ref erence range: 4-50 ng/ dL. The reference r mc was not used to interpret this result as normal/abnor mal. Free 2.6 pg/mL See_Comment [Automated mes logan] Testosterone(Direct) The sys tem which (test code = 2991-8) generat ed this result transmitted ref erence range: 0.0-4.2 pg/mL. The reference r mc was not used to interpret this result as normal/abnor mal. Hemoglobin [id number] 00:00:00 Test Item Value Reference Range Interpretation Comments Hemoglobin A1c (test 5.9 % See_Comment H [Autom ated message] The code = 4548-4) system which generated this result tra nsmitted reference range : 4.8-5.6 %. The referenc e range was not used to interpret this result as normal/abnormal . Comp. Metabolic Panel (14) (CMP)2021-12-26 00:00:00 Test Item Value Reference Range Interpretation Comments Glucose (test code = 144 mg/dL See_Comment H [Autom ated message] 2345-7) The system [employer] generated this result transmitted ref erence range: 70-99 mg /dL. The reference r mc was not used to interpret this result as normal/abnor mal. BUN (test code = 13 mg/dL See_Comment [Automated message] 3094-0) The system [employer] generated this result transmitted ref erence range: 6-24 mg/ dL. The reference r mc was not used to interpret this result as normal/abnor mal. Creatinine (test code 0.79 mg/dL See_Comment [Auto mated message] = 2160-0) The system [employer] generated this result transmitted ref erence range: 0.57-1.0 0 mg/dL. The refe rence range was not u sed to interpret this result as normal/abnor mal. BUN/Creatinine Ratio 16 9-23 (test code = 3097-3) Sodium (test code = 139 mmol/L See_Comment [Automa aron message] 2951-2) The system [facility] generated this result transmitted ref erence range: 134-144 mmol/L. The ref erence range was not u sed to interpret this result as normal/abnor mal. Potassium (test code = 4.2 mmol/L See_Comment [Aut omated message] 3523-3) The system [facility] generated this result transmitted ref erence range: 3.5-5.2 mmol/L. The ref erence range was not u sed to interpret this result as normal/abnor mal. Chloride (test code = 103 mmol/L See_Comment [Auto mated message] 2074-0) The system [facility] generated this result transmitted ref erence range: 96-106 m mol/L. The reference r mc was not used to interpret this result as normal/abnor mal. Carbon Dioxide, Total 24 mmol/L See_Comment [Auto mated message] (test code = 2027-12) The s tem which generated this result transmitted ref erence range: 20-29 mm ol/L. The reference r mc was not used to interpret this result as normal/abnor mal. Calcium (test code = 8.8 mg/dL See_Comment [Autom ated message] 43236-1) The system [facility] generated this result transmitted ref erence range: 8.7-10.2 mg/dL. The refe rence range was not u sed to interpret this result as normal/abnor mal. Protein, Total (test 6.4 g/dL See_Comment [Autom ated message] code = 5085-2) The system [facility] generated this result transmitted ref erence range: 6.0-8.5 g/dL. The reference r mc was not used to interpret this result as normal/abnor mal. Albumin (test code = 3.9 g/dL See_Comment [Autom ated message] 2804-7) The system [facility] generated this result transmitted ref erence range: 3.8-4.8 g/dL. The reference r mc was not used to interpret this result as normal/abnor mal. Globulin, Total (test 2.5 g/dL See_Comment [Auto mated message] code = 85561-4) The system [facility] generated this result transmitted ref erence range: 1.5-4.5 g/dL. The reference r mc was not used to interpret this result as normal/abnor mal. A/G Ratio (test code = 1.6 1.2-2.2 1759-0) Bilirubin, Total (test 0.2 mg/dL See_Comment [Aut omated message] code = 1974-2) The system [facility] generated this result transmitted ref erence range: 0.0-1.2 mg/dL. The reference r mc was not used to interpret this result as normal/abnor mal. Alkaline Phosphatase 50 IU/L See_Comment [Autom ated message] (test code = 6768-6) The [facility] tem which generated this result transmitted ref erence range: 44-121 I U/L. The reference r mc was not used to interpret this result as normal/abnor mal. AST (SGOT) (test code 80 IU/L See_Comment H [Auto mated message] = 1920-8) The system [facility] h generated this result transmitted ref erence range: 0-40 IU/ L. The reference range was not used to int erpret this result as normal/abnormal . ALT (SGPT) (test code 52 IU/L See_Comment H [Auto mated message] = 1742-6) The system [facility] h generated this result transmitted ref erence range: 0-32 IU/ L. The reference range was not used to int erpret this result as normal/abnormal . Vitamin D, 80-Nmohftj6295-15-27 00:00:00 Test Item Value Reference Range Interpretation Comments Vitamin D, 36.6 ng/mL See_Comment [Automated mes logan] 25-Hydroxy (test The system which code = 1988-3) generated thi s result transmitted ref erence range: 30.0-100 .0 ng/mL. The refe rence range was not u sed to interpret this result as normal/abnor mal. Thyroid Panel With [id number] 00:00:00 Test Item Value Reference Range Interpretation Comments TSH (test code = 1.850 uIU/mL See_Comment [Automated message] 06082-4) The system [employer] generated this result transmitted ref erence range: 0.450-4. 500 uIU/mL. The ref erence range was not u sed to interpret this result as normal/abnor mal. Thyroxine (T4) (test 8.4 ug/dL See_Comment [Autom ated message] code = 3026-2) The system [facility] generated this result transmitted ref erence range: 4.5-12.0 ug/dL. The refe rence range was not u sed to interpret this result as normal/abnor mal. T3 Uptake (test code 16 % See_Comment L [Autom ated message] = 3050-2) The system [employer] generated this result transmitted ref erence range: 24-39 %. The reference range was not used to int erpret this result as normal/abnormal . Free Thyroxine Index 1.3 1.2-4.9 (test code = 74778-4) Testosterone,Free and [id number] 00:00:00 Test Item Value Reference Range Interpretation Comments Testosterone (test code 133 ng/dL See_Comment H [Au tomated message] = 2986-8) The system [employer] generated this result transmitted ref erence range: 4-50 ng/ dL. The reference r mc was not used to interpret this result as normal/abnor mal. Free 2.6 pg/mL See_Comment [Automated mes logan] Testosterone(Direct) The s tem which (test code = 2991-8) generat ed this result transmitted ref erence range: 0.0-4.2 pg/mL. The reference r mc was not used to interpret this result as normal/abnor mal. Hemoglobin [id number] 00:00:00 Test Item Value Reference Range Interpretation Comments Hemoglobin A1c (test 5.9 % See_Comment H [Autom ated message] The code = 4548-4) system which generated this result tra nsmitted reference range : 4.8-5.6 %. The referenc e range was not used to interpret this result as normal/abnormal . Comp. Metabolic Panel (14) ([facility])2021-12-26 00:00:00 Test Item Value Reference Range Interpretation Comments Glucose (test code = 144 mg/dL See_Comment H [Autom ated message] 2403-7) The system [employer] generated this result transmitted ref erence range: 70-99 mg /dL. The reference r mc was not used to interpret this result as normal/abnor mal. BUN (test code = 13 mg/dL See_Comment [Automated message] 3094-0) The system [employer] generated this result transmitted ref erence range: 6-24 mg/ dL. The reference r mc was not used to interpret this result as normal/abnor mal. Creatinine (test code 0.79 mg/dL See_Comment [Auto mated message] = 2160-0) The system [employer] generated this result transmitted ref erence range: 0.57-1.0 0 mg/dL. The refe rence range was not u sed to interpret this result as normal/abnor mal. BUN/Creatinine Ratio 16 9-23 (test code = 3097-3) Sodium (test code = 139 mmol/L See_Comment [Automa aron message] 8762-2) The system [employer] generated this result transmitted ref erence range: 134-144 mmol/L. The ref erence range was not u sed to interpret this result as normal/abnor mal. Potassium (test code = 4.2 mmol/L See_Comment [Aut omated message] 3716-3) The system [employer] generated this result transmitted ref erence range: 3.5-5.2 mmol/L. The ref erence range was not u sed to interpret this result as normal/abnor mal. Chloride (test code = 103 mmol/L See_Comment [Auto mated message] 6325-0) The system [employer] generated this result transmitted ref erence range: 96-106 m mol/L. The reference r mc was not used to interpret this result as normal/abnor mal. Carbon Dioxide, Total 24 mmol/L See_Comment [Auto mated message] (test code = 4-9) The s tem which generated this result transmitted ref erence range: 20-29 mm ol/L. The reference r mc was not used to interpret this result as normal/abnor mal. Calcium (test code = 8.8 mg/dL See_Comment [Autom ated message] 95339-9) The system [employer] generated this result transmitted ref erence range: 8.7-10.2 mg/dL. The refe rence range was not u sed to interpret this result as normal/abnor mal. Protein, Total (test 6.4 g/dL See_Comment [Autom ated message] code = 2885-2) The system [facility] generated this result transmitted ref erence range: 6.0-8.5 g/dL. The reference r mc was not used to interpret this result as normal/abnor mal. Albumin (test code = 3.9 g/dL See_Comment [Autom ated message] 1751-7) The system [facility] generated this result transmitted ref erence range: 3.8-4.8 g/dL. The reference r mc was not used to interpret this result as normal/abnor mal. Globulin, Total (test 2.5 g/dL See_Comment [Auto mated message] code = 09356-6) The system [facility] generated this result transmitted ref erence range: 1.5-4.5 g/dL. The reference r mc was not used to interpret this result as normal/abnor mal. A/G Ratio (test code = 1.6 1.2-2.2 1759-0) Bilirubin, Total (test 0.2 mg/dL See_Comment [Aut omated message] code = 1974-2) The system [facility] generated this result transmitted ref erence range: 0.0-1.2 mg/dL. The reference r mc was not used to interpret this result as normal/abnor mal. Alkaline Phosphatase 50 IU/L See_Comment [Autom ated message] (test code = 6768-6) The [facility] tem which generated this result transmitted ref erence range: 44-121 I U/L. The reference r mc was not used to interpret this result as normal/abnor mal. AST (SGOT) (test code 80 IU/L See_Comment H [Auto mated message] = 1920-8) The system [facility] generated this result transmitted ref erence range: 0-40 IU/ L. The reference range was not used to int erpret this result as normal/abnormal . ALT (SGPT) (test code 52 IU/L See_Comment H [Auto mated message] = 1742-6) The system ic h generated this result transmitted ref erence range: 0-32 IU/ L. The reference range was not used to int erpret this result as normal/abnormal . Vitamin D, 39-Ldiyjwe3644-45-27 00:00:00 Test Item Value Reference Range Interpretation Comments Vitamin D, 36.6 ng/mL See_Comment [Automated mes logan] 25-Hydroxy (test The system which code = 1988-05) generated thi s result transmitted ref erence range: 30.0-100 .0 ng/mL. The refe rence range was not u sed to interpret this result as normal/abnor mal. Hepatic function [id number] 12:16:00 Test Item Value Reference Range Interpretation Comments Protein (test code = 6.2 g/dL 6.0-8.5 2885-2) Albumin, S (test code 3.7 g/dL 3.8-4.8 L = 1751-7) Total bilirubin (test 0.2 mg/dL 0.0-1.2 code = 1974-2) Bilirubin direct 0.11 mg/dL 0.00-0.40 (test code = 1967-7) Alkaline phosphatase 44 See_Comment [Autom ated (test code = 6768-6) message ] The system which generated this result transmitted reference range : 44 - 121 IU/L. The reference range was not used to interpr et this result as normal/abnormal . AST (test code = 84 See_Comment H [Automated 1919-8) message] The system which generated this result transmitted reference range : 0 - 40 IU/L. Th e reference range was not used to interpret this result as normal/abnormal . ALT (test code = 54 See_Comment H [Automated 6) message] The system which generated this result transmitted reference range : 0 - 32 IU/L. Th e reference range was not used to interpret this result as normal/abnormal . ANABEL (test code = ANABEL) Performed at: [address] [place] [address] [id number] Director: Zachary Ordonez MD, Phone: [phone] Lab Interpretation Abnormal (test code = 77500-2) [id number] 17:53:00 Test Item Value Reference Range Interpretation Comments SURGICAL (test code = SR) R UN DATE: 03/10/21 [facility] PAGE 1 RUN TIME: 9153 Specimen Inquiry RUN USER: INTERFACE P ATIENT: CRISSY COREAS LOC: PAAWN U #: [id number] AGE/SX: 50/F ROOM: [facility] RE03/07/21REG DR: Meredith Lopez MD : 74 BED: A DIS: 03/08/21 STATUS: DIS Delia TLOC: SPEC #: [id number] RECD: 03/07/21 STATUS: GOPI REQ #: [id number] DAPHNIE: 03/07/[address]: Meredith Lopez MD ENTERED: 03/07/21 SP TYPE: SURGICAL OTHR DR: DOES_NOT KNOW ORDERED: ANATOMIC SPEC, SPEC TRACK, 67307, 15888/4, 73536, 67613 COPIES TO: DOES_NOT KNOW Meredith Lopez MD [address] [place] [address] [email or web address] PROCEDURES: 09106 (03/07/21-1417) 96591 (03/07/21-1128) 61114 (03/07/21-1417) 88733 (03/10/21-1654) TISSUES: A. ENDOMETRIUM CURETTINGS / BIOPSY - ENDOMETRIAL CURETTINGS-FROZEN SECTIION B. PELVIC ADHESIONS - RIGHT PELVIC SIDE WALL C. CUL-DE-SAC, PERITONEUM - POSTERIOR CUL DE SAC D. CUL-DE-SAC, PERITONEUM - RIGHT POSTERIOR CUL DE SAC E. UTERUS W/WO TUBES OVARIES NON NEOPLASTIC/PROLAPSE - UTERUS, CERVIX, BILATERAL FALLOPIAN TUBES F. ADHESIONS, REVIEWED BIOPSY - BOWEL ADHESIONS FINAL DIAGNOSIS A. ENDOMETRIUM, CURETTINGS: -Benign decidualized endometrium. B. SOFT TISSUE, RIGHT PELVIC SIDEWALL, BIOPSY: -Fibromuscular tissue with no significant histologic abnormality. C. SOFT TISSUE, POSTERIOR CUL-DE-SAC, BIOPSY: -Soft tissue with endometriosis. -Negative for malignancy. D. SOFT TISSUE, POSTERIOR CUL-DE-SAC, RIGHT, BIOPSY: -Fibrofatty tissue with no significant histologic abnormality. E. UTERUS CERVIX AND BILATERAL TUBES, HYSTERECTOMY AND BILATERAL SALPINGECTOMY: -Uterus, 218 grams. -Decidualized endometrium. -Cervix with nabothian cysts. CONTINUED ON NEXT PAGE R UN DATE: 03/10/21 [facility] PAGE 2 RUN TIME: 1752 Specimen Inquiry RUN USER: INTERFACE S [facility] #: [id number] PATIENT: CRISSY COREAS #[id number] (Continued) FINAL DIAGNOSIS (Continued) -Right fallopian tube with benign mucosal epithelial hyperplasia and paratubal cyst. -Unremarkable left fallopian tube. F. BOWEL, ADHESIONS, BIOPSY: -Partially calcified fibrous tissue. GROSS DESCRIPTION Specimen A was received fresh for frozen section analysis Labeled "endometrial curetting".Specimen consists of soft white and bloody fragments of tissue measuring 1.2 x1 x 0.2 cm in aggregate. Specimen is entirely submitted for frozen section analysis whichis interpreted by Dr. Rose and communicated to Dr. Lopze Within 20 minutes. Frozenremnant is entirely submitted in 1 cassette labeled A1.The remainder was submitted in A2for permanent. Site B received in formalin labeled with the patient's name and date of designated"right pelvic sidewall" is 1 mayes-jay fragment of membranous tissue measuring 0.9 x 0.5 x0.1 cm. The specimen is bisected placed in a mesh bag and submitted entirely in B1. Site C received in formalin labeled with the patient's name and date of designated"posterior cul-de-sac" is a single fragment of light jay tissue measuring 0.5 x 0.4 x 0.1cm. The specimen is placed in a mesh bag and submitted entirely in C1. Site D received in formalin labeled with the patient's name and date of designated"right posterior cul-de-sac" is a single fragment of yellow-jay tissue measuring 0.4 x 0.2x 0.1 cm. Specimen is placed in a mesh bag submitted entirely in D 1. Site E received in formalin labeled with the patient's name date of designated"uterus, cervix, bilateral fallopian tubes" is an unopened uterus with attached bilateraltubes weighing 218 g in toto. Specimen measures 11.5 cm from cervix to fundus, 6.5 cmfrom cornu to cornu and 6.0 cm from anterior to posterior. The serosa is jay and smooth. The cervix is white-mayes measures 3.6 x 3.0 with a 0.7 cm os. The the endometrial canalmeasures 3.3 x 0.4 cm. The endometrial cavity measures 5 x 3.5 cm and is covered with ared jay endometrium of 0.3 cm thickness. Multiple cystic structures are identified in thecervix and lower uterine segment. No masses or polyps identified. The right tubularstructures fimbriated and measures 7 cm in length and up to 1.1 cm in diameter. Theserosal surface is grossly unremarkable and sectioning reveals a pinpoint lumen. The lefttubular structure is fimbriated and measures 4.8 cm in length and up to 0.8 cm in diameter. The serosal surface appears grossly unremarkable sectioning reveals a pinpoint lumen. Taxi Driver Supervisor sections are submitted as follows E1: anterior cervix/ lower uterine segmentE2: anterior endomyometriumE3: posterior cervix/lower uterine segmentE4: posterior endomyometriumE5: right tube with entire fimbriaeE6: left tube with entire fimbriae Site F received in formalin labeled with the patient's name date of designated "bowel CONTINUED ON NEXT PAGE R UN DATE: 03/10/21 [facility] PAGE 3 RUN TIME: 1753 Specimen Inquiry RUN USER: INTERFACE S PEC #: [id number] PATIENT: CRISSY COREAS #[id number] (Continued) GROSS DESCRIPTION (Continued) adhesions" is a firm fragment of jay tissue measuring 0.5 x 0.3 x 0.3 cm. Specimen isbisected placed in a mesh bag and submitted entirely in F 1 Technical component performed at [facility],[address] , [place] [address] Unless gross only, the diagnosis is based upon microscopic examination.Immunohistochemistr y: This test was developed and its performance characteristicsdetermined by this laboratory. It has not been approved nor does it need approval by [place] FDA. Appropriate positive and negative controls are reviewed and judged to beacceptable. This laboratory is certified under the Clinical Laboratory ImprovementAmendments (CLIA-88) as qualified to perform high complexity clinical laboratory testing. INTRAOPERATIVE CONSULTATION Specimen A was received fresh for frozen section analysis at 11:19 a.m. labeled endometrialcuretting. Specimen consists of soft white and bloody fragments of tissue measuring 1.2 x1 x 0.2 cm in aggregate. Specimen is entirely submitted for frozen section analysis whichis interpreted by Dr. Rose and communicated to Dr. Lopez at 11:32 a.m. (13 minutes) Frozen section interpretation: Benign decidualized endometrium CLINICAL INFORMATION MENORRHAGIA Signed SIGNATURE ON FILE Julio Rose 03/10/21 5995 END OF REPORT CBC W/AUTO [id number] 05:06:00 Test Item Value Reference Range Interpretation Comments WHITE BLOOD CELL (test 14.0 K/mm3 6.5-12.3 H Resul ts verified by code = WBC) repeat analysis RED BLOOD CELL (test 3.49 M/mm3 3.51-4.69 L code = RBC) HEMOGLOBIN (test code = 10.7 g/dL 10.1-13.8 N HGB) HEMATOCRIT (test code = 33.6 % 32.5-41.8 N HCT) MEAN CELL VOLUME (test 96.3 fL 84.6-96.6 N code = MCV) MEAN CELL HGB (test code 30.7 pg 27.3-33.9 N = MCH) MEAN CELL HGB 31.8 gm/dL 32.0-34.2 L CONCETRATION (test code = MCHC) RED CELL DISTRIBUTION 13.2 % 12.2-16.3 N WIDTH (test code = RDW) PLATELET COUNT (test 199 K/mm3 134-363 N code = PLT) MEAN PLATELET VOLUME 10.5 fL 9.2-12.7 N (test code = MPV) NEUTROPHIL % (test code 76.8 % 57.9-77.3 N = NT%) LYMPHOCYTE % (test code 15.8 % 14.5-29.7 N = LY%) MONOCYTE % (test code = 6.6 % 3.6-10.2 N MO%) EOSINOPHIL % (test code 0.1 % 0.0-3.0 N = EO%) BASOPHIL % (test code = 0.1 % 0.1-0.9 N BA%) NEUTROPHIL # (test code 10.8 K/mm3 = NT#) LYMPHOCYTE # (test code 2.2 K/mm3 = LY#) MONOCYTE # (test code = 0.9 K/mm3 MO#) EOSINOPHIL # (test code 0.01 K/mm3 = EO#) BASOPHIL # (test code = 0.0 K/mm3 BA#) RBC MORPHOLOGY REQUIRED NORMAL NORMAL (test code = RBCM) PLATELET MORPHOLOGY NORMAL NORMAL REQUIRED (test code = PLTMR) BASIC METABOLIC [id number] 22:36:00 Test Item Value Reference Range Interpretation Comments SODIUM (test code = NA) 139 mEq/L 135-145 N POTASSIUM (test code = K) 3.7 mEq/L 3.5-5.0 N CHLORIDE (test code = CL) 102 mEq/L 100-115 N CARBON DIOXIDE (test code = CO2) 26 mEq/L 22-31 N ANION GAP (test code = GAP) 14.70 10-20 N GLUCOSE (test code = GLU) 115 mg/dL 65-110 H BLOOD UREA NITROGEN (test code = 20 mg/dL 7-18 H BUN) GLOMERULAR FILTRATION RATE (test 67 ml/min >60 N code = GFR) CREATININE (test code = CREAT) 0.9 mg/dL 0.5-1.0 N CALCIUM (test code = CA) 9.0 mg/dL 8.4-10.2 N HCG SERUM [id number] 22:36:00 Test Item Value Reference Range Interpretation Comments HCG SERUM QUAL (test code = HCGQL) NEGATIVE AG HEPATITIS B [id number] 21:54:00 Test Item Value Reference Range Interpretation Comments AG HEPATITIS B SURFACE (test code NONREACTIVE NONREACTIVE = HBSAG) AB HEPATITIS C [id number] 21:54:00 Test Item Value Reference Range Interpretation Comments AB HEPATITIS C (test code = NONREACTIVE NONREACTIVE HCVAB) SIGNAL TO CUTOFF (test code = 0.03 <0.80 N CUTOFF) AB HIV 1 21:54:00 Test Item Value Reference Range Interpretation Comments AB HIV 1 2 (test NONREACTIVE NONREACTIVE Done by [facility] code = [id number]) 4th Gen HIV Ag/Ab Combo Screen COVID 19 Asymptomatic IH [id number] 21:51:00 Test Item Value Reference Range Interpretation Comments COVID 19 NEGATIVE NEGATIVE This test has b een Asymptomatic IH AG authorize d only for the (test code = detection ofpro teins from COVNONPUIAG) SARS-CoV-2, not for any other viruses orpathogens. Ne gative results should be treated as presumptive andconfirmed wi th a molecular assay , if necessary for patientmanageme nt. Negative result s do not rule out COVID- 19 andshould not b e used as the sole basis for treatment orpat ient management deci sions, including infec tion controldecision s. Negative result s should be considered i n thecontext of a patient's recent exposure s, history and thepresence of clinical signs and symptoms consis tent withCOVID-19. T his test has not been FD A cleared or approved; th e test hasbeen authori zewillian by FDA under an Emerge ncy Use Authorization(E UA) for use by laborato matt certified under the CLIA thatmeet the re quirements to perform mode rate, high or waivedcomple xity tests. This judie t is authorized for use at thePoint of Car e (POC), i.e., in patien t care settingsoperati ng under a CLIA Certificat e of Waiver, Certifi steve ofCompliance, o r Certificate of Accreditation. This test is only authori zed for the duration of thedeclaration that circumstances e xist justifying theauthorizatio n of emergency use o f in vitro diagnostic test sfor detection and/o r diagnosis of CO VID-19 under Evxyffe34 4(b)(1) of the Act, 21 U.S .C. 360bbb-3(b)(1), unless theauthorizatio n is terminated or r evoked sooner. URINALYSIS [id number] 15:54:00 Test Item Value Reference Range Interpretation Comments UA COLOR (test code = COLU) YELLOW YELLOW UA APPEARANCE (test code = Slightly-Cloudy CLEAR APPU) UA GLUCOSE DIPSTICK (test NEGATIVE NEG code = DGLUU) UA BILIRUBIN DIPSTICK (test NEGATIVE NEG code = BILU) UA KETONE DIPSTICK (test code NEGATIVE NEG = KETU) UA SPECIFIC GRAVITY (test 1.019 1.001-1.035 N code = SGU) UA BLOOD DIPSTICK (test code 2+ NEG A = LINDA) UA PH DIPSTICK (test code = 6.0 5-9 YASIR) UA PROTEIN DIPSTICK (test NEGATIVE NEG code = PROU) UA UROBILINIOGEN DIPSTICK NEGATIVE mg/dL NEG (test code = URO) UA NITRITE DIPSTICK (test NEG NEG code = CHANG) UA LEUKOCYTE ESTERASE NEG NEG DIPSTICK (test code = LEUU) UA WBC (test code = WBCU) 0-2 #/hpf NONE SEEN UA RBC (test code = RBCU) 0-2 #/hpf NONE SEEN UA EPITHELIAL CELLS (test FEW #/HPF RARE-FEW code = EPIU) UA BACTERIA (test code = NEGATIVE /HPF RARE-FEW BACU) UA MUCUS (test code = MUCU) RARE NONE SEEN URINE SAMPLE: CLEAN CATCHCBC W/AUTO [id number] 15:48:00 Test Item Value Reference Range Interpretation Comments WHITE BLOOD CELL (test code = WBC) 8.8 K/mm3 6.5-12.3 N RED BLOOD CELL (test code = RBC) 3.95 M/mm3 3.51-4.69 N HEMOGLOBIN (test code = HGB) 12.2 g/dL 10.1-13.8 N HEMATOCRIT (test code = HCT) 37.2 % 32.5-41.8 N MEAN CELL VOLUME (test code = MCV) 94.2 fL 84.6-96.6 N MEAN CELL HGB (test code = MCH) 30.9 pg 27.3-33.9 N MEAN CELL HGB CONCETRATION (test 32.8 gm/dL 32.0-34.2 N code = MCHC) RED CELL DISTRIBUTION WIDTH (test 13.3 % 12.2-16.3 N code = RDW) PLATELET COUNT (test code = PLT) 216 K/mm3 134-363 N MEAN PLATELET VOLUME (test code = 11.4 fL 9.2-12.7 N MPV) NEUTROPHIL % (test code = NT%) 65.1 % 57.9-77.3 N LYMPHOCYTE % (test code = LY%) 28.4 % 14.5-29.7 N MONOCYTE % (test code = MO%) 4.9 % 3.6-10.2 N EOSINOPHIL % (test code = EO%) 1.0 % 0.0-3.0 N BASOPHIL % (test code = BA%) 0.3 % 0.1-0.9 N NEUTROPHIL # (test code = NT#) 5.7 K/mm3 LYMPHOCYTE # (test code = LY#) 2.5 K/mm3 MONOCYTE # (test code = MO#) 0.4 K/mm3 EOSINOPHIL # (test code = EO#) 0.09 K/mm3 BASOPHIL # (test code = BA#) 0.0 K/mm3 RBC MORPHOLOGY REQUIRED (test code NORMAL NORMAL = RBCM) PLATELET MORPHOLOGY REQUIRED (test NORMAL NORMAL code = PLTMR) - DUP AB/PEL/SC/[id number] 00:00:00 [facility] 1970 Sex: FPatient Name: CRISSY COREAS Unit No: [id number] EXAMS: CPT CODE: [id number] DUP AB/PEL/SC/LTD 42865 PROCEDURE INFORMATION: Exam: US Duplex Artery or Vein of the Abdominal and/or Reproductive Organs, Limited Ovaries Exam date and time: 11/03/2020 7:15 AM Age: 50 years old Clinical indication: Abdominal or pelvic symptoms: Uterine enlargment; Menstruation abnormalities; Amenorrhea; Prior surgery; Surgery date: 6+ months TECHNIQUE: Imaging protocol: Real-time duplex ultrasound scan of the arterial or venous flow with mayes scale, color Doppler flow and spectral waveform analysis with image documentation. Limited duplex exam focused on the ovaries. Duplex images required to evaluate for torsion and other vascular conditions. COMPARISON: CT ABD PELVIS W/CONT 06/09/2015 2:26 PM FINDINGS: Right ovary Doppler: Doppler flow demonstrated in the right ovary. Left ovary Doppler: Doppler flow demonstrated in the left ovary. IMPRESSION: Doppler flow demonstrated in both ovaries PROCEDURE INFORMATION: Exam: US Pelvis Complete, Transabdominal and US Pelvis, Transvaginal Exam date and time: 11/03/2020 7:15 AM Age: 50 years old Clinical indication: Abdominal or pelvic symptoms: Uterineenlargment; Menstruation abnormalities; Amenorrhea; Prior surgery; Surgery date: 6+ months TECHNIQUE: Imaging protocol: Real-time transabdominal and transvaginal pelvic ultrasound (complete) with imagedocumentation. Transvaginal imaging was used for better evaluation of the endometrium, adnexa, and/or cervix. COMPARISON: CT ABD PELVIS W/CONT 06/09/2015 2:26 PM FINDINGS: Uterus/cervix: Uterus measures 11.2 x 6.4 x 6.5 cm. Uterine echotexture is heterogeneous. No discrete fibroids were seen. Endometrium was thickened measuring 1.9 cm with small cystic foci within the endometrial cavity. Findings may represent endometrial hyperplasia. Endometrial malignancy is not excluded. T-shaped IUD is locatedin satisfactory position within the [facility] NAME: CRISSY COREAS Radiology Department PHYS: [facility]. - Sole Delcid MD [address] : 1970 AGE: 50 SEX: F [place], [place] [address] LOC: F.RAD PHONE #: [phone] EXAM DATE: 11/03/2020 STATUS: REG CLI FAX #: [phone] RAD NO: [id number] Page 1 Signed Report (CONTINUED) Patient Name: CRISSY COREAS Unit No: [id number] EXAMS: CPT CODE: [id number] DUP AB/PEL/SC/LTD 01776 (Continued) endometrium. Right adnexa: Right ovary measures 3.5 x 2.0 x 4.0 cm and appeared normal. Doppler flow demonstrated inthe right ovary. Left adnexa: Left ovary measured 4.3 x 3.0 x 4.8 cm. Left ovary contained a 2.7 cm cyst as well as a 1.9 cm cyst. Doppler flow demonstrated in the left ovary. Intraperitoneal space: No intraperitoneal fluid. IMPRESSION: Thickened endometrium with small cystic foci within the endometrium. The possibility of endometrial hyperplasia and/or endometrial malignancy is raised. IUD is located within the uterus. Small left ovarian cysts. Please see above for details. Electronically Signedby Junior Oates MD on 11/03/2020 at 0758 Reported and signed by: Junior Oates MD CC: Technologist: Misa Mathur RDMS Probe: Trnscrbd D/ (0758) GCD.CPS Orig Print D/T: S: 11/03/2020 (0759) [facility] NAME: CRISSY COREAS [facility] -Sole Delcid [facility] [address] : 1970 AGE: 50 SEX: F [place] [id number] LOC: F.RAD PHONE #: [phone] EXAM DATE: 11/03/2020 STATUS: REG CLI FAX #: [phone] RAD NO: [id number] Page 2 Signed Report Patient Name: CRISSY COREAS Unit No: [id number] EXAMS: CPT CODE: [id number] DUP AB/PEL/SC/LTD 03326 (Continued) [facility] NAME: CIARRA COREASIE MRadiology Department PHYS[facility] - Sole Delcid MD [address] : 1970 AGE: 50 SEX: F [place] [address] LOC: F.RAD PHONE #: [phone] EXAM DATE: 11/03/2020 STATUS: REG CLI FAX #: [phone] RAD NO: [id number] Page 3 Signed Report- US TRANSVAGINAL W/PELVIS 2020-11-03 00:00:00 [facility] 1970 Sex: FPatient Name: CRISSY COREAS Unit No: [id number] EXAMS: CPT CODE: [id number] US TRANSVAGINAL W/PELVIS 52391 PROCEDURE INFORMATION: Exam: US Duplex Artery or Vein of the Abdominal and/or Reproductive Organs, Limited Ovaries Exam date and time: 11/03/2020 7:15 AM Age: 50 years old Clinical indication:Abdominal or pelvic symptoms: Uterine enlargment; Menstruation abnormalities; Amenorrhea; Prior surgery; Surgery date: 6+ months TECHNIQUE: Imaging protocol: Real-time duplex ultrasound scan of the arterial or venous flow with mayes scale, color Doppler flow and spectral waveform analysis with image documentation. Limited duplex exam focused on the ovaries. Duplex images required to evaluate for torsion and other vascular conditions. COMPARISON: CT ABD PELVIS W/CONT 06/09/2015 2:26 PM FINDINGS: Right ovary Doppler: Doppler flow demonstrated in the right ovary. Left ovary Doppler: Doppler flow demonstrated in the left ovary. IMPRESSION: Doppler flow demonstrated in both ovaries PROCEDURE INFORMATION: Exam: US Pelvis Complete, Transabdominal and US Pelvis, Transvaginal Exam date and time: 11/03/2020 7:15 AM Age: 50 years old Clinical indication: Abdominal or pelvic symptoms: Uterine enlargment; Menstruation abnormalities; Amenorrhea; Prior surgery; Surgery date: 6+ months TECHNIQUE: Imaging protocol: Real-time transabdominal and transvaginal pelvic ultrasound (complete) with image documentation. Transvaginal imaging was used for better evaluation of the endometrium, adnexa, and/or cervix. COMPARISON: CT ABD PELVIS W/CONT 06/09/2015 2:26 PM FINDINGS: Uterus/cervix: Uterus measures 11.2 x 6.4 x 6.5 cm. Uterine echotexture is heterogeneous. No discrete fibroids were seen. E ndometrium was thickened measuring 1.9 cm with small cystic foci within the endometrial cavity. Findings may represent endometrial hyperplasia. Endometrial malignancy is not excluded. T-shaped IUD is located in satisfactory position within the [facility] NAME: CRISSY COREAS Radiology Department PHYS: [facility] - Sole Delcid MD [address]: 1970 AGE: 50 SEX: F [place], [place] [address] LOC: IlanRAD PHONE #: [phone] EXAM DATE: 11/03/2020 STATUS: REG CLI FAX #: [phone] RAD NO: [id number] Page 1 Signed Report (CONTINUED) Patient Name: CRISSY COREAS Unit No: [id number] EXAMS: CPT CODE: [id number] US TRANSVAGINAL W/PELVIS 46933 (Continued) endometrium. Right adnexa: Right ovary measures 3.5 x 2.0 x 4.0 cm and appeared normal. Doppler flow demonstrated in the right ovary. Left adnexa: Left ovary measured 4.3 x 3.0 x 4.8 cm. Left ovary contained a 2.7 cm cyst as well as a 1.9 cm cyst. Doppler flow demonstrated in the left ovary. Intraperito jade space: No intraperitoneal fluid. IMPRESSION: Thickened endometrium with small cystic foci within the endometrium. The possibility of endometrial hyperplasia and/or endometrial malignancy is raised. IUD is located within the uterus. Small left ovarian cysts. Please see above for details. Electr onically Signed by Junior Oates MD on 11/03/2020 at 0758 Reported and signed by: Junior Oates [facility]: Technologist: Misa Mathur RDMS Probe: [id number] Trnscrbd D/ (0758) GCD.CPS Orig Print D/T: S: 11/03/2020 (0758) [facility] NAME: CRISSY COREAS Radiology Department PHYS: Sole Redman MD [address] : 1970 AGE: 50 SEX: F [place], [place] [address] LOC: IlanRAD PHONE #: [phone] EXAM DATE: 11/03/2020 STATUS: REG CLI FAX #: [phone] RAD NO: [id number] Page 2 Signed Report Patient Name: CRISSY COREAS Unit No: [id number] EXAMS: CPT CODE: [id number] US TRANSVAGINAL W/PELVIS 66239 (Continued) [facility] NAME: CRISSY COREAS Radiology Department PHYS: Sole Redman MD [address] : 1970 AGE: 50 SEX: F [place], [place] [address] LOC: F.RAD PHONE #: [phone] EXAM DATE: 11/03/2020 STATUS: REG CLI FAX #: [phone] RAD NO: [id number] Page 3 Signed Report- US PELVIS [id number] 00:00:00 [facility] : 1970 Sex: FPatient Name: CRISSY COREAS Unit No: [id number] EXAMS: CPT CODE: [id number] US PELVIS COMPLETE 89036 PROCEDURE INFORMATION: Exam: US Duplex Artery or Vein of the Abdominal and/or Reproductive Organs, Limited Ovaries Exam date and time: 11/03/2020 7:15 AM Age: 50 years old Clinical indication: Abdominal or pelvic symptoms: Uterine enlargment; Menstruation abnormalities; Amenorrhea; Prior surgery; Surgery date: 6+ months TECHNIQUE: Imaging protocol: Real-time duplex ultrasound scan of the arterial or venous flow with mayes scale, color Doppler flow and spectral waveform analysis with image documentation. Limited duplex exam focused on the ovaries. Duplex images required to evaluate for torsion and other vascular conditions. COMPARISON: CT ABD PELVIS W/CONT 06/09/2015 2:26 PM FINDINGS: Right ovary Doppler: Doppler flow demonstrated in the right ovary. Left ovary Doppler: Doppler flow demonstrated in the left ovary. IMPRESSION: Doppler flow demonstrated in both ovaries PROCEDURE INFORMATION: Exam: US Pelvis Complete, Transabdominal and US Pelvis, Transvaginal Exam date and time: 11/03/2020 7:15 AM Age: 50 years old Clinical indication: Abdominal or pelvic symptoms: Uterineenlargment; Menstruation abnormalities; Amenorrhea; Prior surgery; Surgery date: 6+ months TECHNIQUE: Imaging protocol: Real-time transabdominal and transvaginal pelvic ultrasound (complete) with imagedocumentation. Transvaginal imaging was used for better evaluation of the endometrium, adnexa, and/or cervix. COMPARISON: CT ABD PELVIS W/CONT 06/09/2015 2:26 PM FINDINGS: Uterus/cervix: Uterus .2 x 6.4 x 6.5 cm. Uterine echotexture is heterogeneous. No discrete fibroids were seen. Endometrium was thickened measuring 1.9 cm with small cystic foci within the endometrial cavity. Findings may represent endometrial hyperplasia. Endometrial malignancy is not excluded. T-shaped IUD is located insatisfactory position within the [facility] NAME: CRISSY COREAS Radiology Dep artment [facility]YS[facility] - Sole Delcid MD [address] : 1970 AGE: 50 SEX: F [place] LOC: F.RAD PHONE #: [phone] EXAM DATE: 11/03/2020 STATUS: REG CLI FAX #: [phone] RAD NO: [id number] Page 1 Signed Report (CONTINUED) Patient Name: CRISSY COREAS Unit No: [id number] EXAMS: CPT CODE: [id number] US PELVIS COMPLETE 10512 (Continued) endometrium. Right adnexa: Right ovary measures 3.5 x 2.0 x 4.0 cm and appeared normal. Doppler flow demonstrated in the right ovary. Left adnexa: Left ovary measured 4.3 x 3.0 x 4.8 cm. Left ovary contained a 2.7 cm cyst as well as a 1.9 cm cyst. Doppler flow demonstrated in the left ovary. Intraperitoneal space: No intraperitoneal fluid. IMPRESSION: Thickened endometrium with small cystic foci within the endometrium. The possibility of endometrial hyperplasia and/or endometrial malignancy is raised. IUD is locatedwithin the uterus. Small left ovarian cysts. Please see above for details. at 0758 Reported and signed by: Junior Oates MD CC: Technologist: Misa Mathur RDMS Probe: Trnscrbd D/ (0758) GCD.CPS Orig Print D/T: S: 11/03/2020 (0758) [facility] NAME: CRISSY COREAS Radiology Department PHYS[facility] Marcelina Sole Delcid MD [address] : 1970 AGE: 50 SEX: F [place] [address] LOC: Alberto.RAD PHONE #: [phone] EXAM DATE: 11/03/2020 STATUS: REG CLI FAX #: [phone] RAD NO:[id number] Page 2 Signed Report Patient Name: CRISSY COREAS Unit No: [id number] EXAMS: CPT CODE: [id number] US PELVIS COMPLETE [id number] (Continued) [facility] NAME: CRISSY COREAS MRadiology Department PHYS: [facility] [address] : 1970 AGE: 50 SEX: F [place], [place] [address] LOC: Alberto.RAD PHONE #: [phone] EXAM DATE: 11/03/2020 STATUS: REG CLI FAX #: [phone] RAD NO: [id number] Page 3 Signed ReportUS ABDOMEN [id number] 18:37:28HISTORY: Steatosis of the liver. TECHNIQUE: Upper abdominal organs were evaluated in multiple planeswiththe patient in multiple different positions, without and with colorimaging. FINDINGS: We have noprior study available for comparison. Liver is 16.5 cm, spleen is 10.8 x 4.1 cm, right kidney is 11.2 x 4.4 x 4.7cm and left kidney is 11.5 x 5.7 x 6.0 cm in size. Liver showed diffusemild increased ech otexture, consistent with steatosis. In addition, leftlobe of the liver showed slightly irregular shaped hypoechoic 2.1 x 1.5 cmlesion, probably cyst filled with thick fluid. Cortex of both kidneys rangebetween 9 mm and 14 mm. No hydronephrosis, free fluid in the upper abdomenor aortic aneurysm detected. Visualized portions of the pancreas appearnormal. Hepatic and portal venous system appear patent,with hepatopetalportal flow noted. Gallbladder appears to be of normal size and shape with no edema orthickening of the valentin. No gallstones detected. Common hepatic duct is 5.5mm. CONCLUSIONS:1. Normal size liver with diffuse hepatic steatosis.2. 2 cm hypoechoic lesion in the left lobe of the liver is probably anincidental slightly irregular shaped liver cyst. However, this may befurther confirmed by triple phase CT scan or MRI without and with contrast. [facility], [place] Results Inft User - 11:38 PM CDT HISTORY: Steatosis of the princess er.TECHNIQUE: Upper abdominal organs were evaluated in multiple planes withthe patient in multiple different positions, without and with colorimaging.FINDINGS: We have no prior study available for comparison.Liver is 16.5 cm, spleen is 10.8 x 4.1 cm, right kidney is 11.2 x 4.4 x 4.7cm and left kidney is 11.5 x 5.7 x 6.0 cm in size. Liver showed diffusemild increased echotexture, consistent with steatosis. In addition, leftlobe of the liver showed slightly irregular shaped hypoechoic 2.1 x 1.5 cmlesion, probably cyst filled with thick fluid. Cortex of both kidneys rangebetween 9 mm and 14 mm. No hydronephrosis, free fluid in the upper abdomenor aortic aneurysm detected. Visualized portions of the pancreas appearnormal. Hepatic and portal venous system appear patent, with hepatopetalportal flow noted.Gallbladder appears to be of normal size and shape with no edema orthickening of the valentin. No gallstones detected. Common hepatic duct is 5.5mm.CONCLUSIONS:1. Normal size liver with diffuse hepatic steatosis.2. 2 cm hypoechoic lesion in the left lobe of the liver is probably anincidental slightly irregular shaped liver cyst. However, this may befurther confirmed by triple phase CT scan or MRI without and with contrast.[facility] SystemHepatic function [id number] 11:09:00 Test Item Value Reference Range Interpretation Comments Protein (test code = 7.0 g/dL 6.0-8.5 2885-2) Albumin, S (test code = 3.8 g/dL 3.8-4.8 1751-7) Total bilirubin (test 0.4 mg/dL 0.0-1.2 code = 1974-2) Bilirubin direct (test 0.11 mg/dL 0.00-0.40 code = 1967-) Alkaline phosphatase See_Comment [Autom ated message] (test code = 6768-6) The [employer] tem which generated this result transmit aron reference range : 39 - 117 IU/L. The reference range was not used to interpret this result as normal/abnormal . AST (test code = See_Comment [Automated message] 1920-8) The system [employer] generated this result transmit aron reference range : 0 - 40 IU/L. The reference range was not used to interpret this result as normal/abnormal . ALT (test code = See_Comment H [Automated message] 1742-6) The system [employer] generated this result transmit aron reference range : 0 - 32 IU/L. The reference range was not used to interpret this result as normal/abnormal . ANABEL (test code = ANABEL) Lab Interpretation Abnormal (test code = 07573-1) [facility] [id number] 10:02:00Surgical Pathology Report Case: [id number] Authorizing Provider: Maury Mosley MD Collected: 02/18/2017 0850 Ordering Location: [facility] Received: 02/18/2017 1041 SERVICES Pathologist: Corinne Morales MD Specimens: A) - Breast, Right, right mastectomy scar B) - Breast, Left, left mastectomy scar C) - Mass, left breast A. SKIN, RIGHT BREAST REGION, SCAR, EXCISION: - CICATRIX -FOREIGN BODY GRANULOMATOUS REACTIONB. SKIN, LEFT BREAST REGION, SCAR, EXCISION: - CICATRIX - FOREIGNBODY GRANULOMATOUS REACTIONC. BREAST, LEFT, MASS, EXCISION: - MATURE ADIPOSE TISSUE COMPATIBLE WITH LIPOMA - FOREIGN BODY GRANULOMATOUS REACTION - FAT NECROSIS Signing Pathologist Direct Phone Line: [phone] signed by Corinne Morales MD on 02/22/2017 at 10:02 Nuñez the sections ex amined from all the specimens, no atypia or malignancy is Identified. A. 83030 B. 17922L. 04417Vkeltht of breast cancer, hypertrophic scarA. Right mastectomy [...] cut surface. No other abnormalities are identified. Taxi Driver Supervisor sections are submitted in C1-C6. CARLOS/cody A. Marcelina C. Performed. [facility], Department of Pathology, [address] [place] [address], [place] [address], ZZSBT METABOLIC PANEL 2017-01-31 11:24:00 Test Item Value Reference Range Interpretation Comments SODIUM (BEAKER) 142 meq/L 136-145 (test code = 381) POTASSIUM (BEAKER) 4.6 meq/L 3.5-5.1 (test code = 379) CHLORIDE (BEAKER) 108 meq/L 98-107 H (test code = 382) CO2 (BEAKER) (test 29 meq/L 22-29 code = 355) BLOOD UREA NITROGEN 12 mg/dL 7-21 (BEAKER) (test code = 354) CREATININE (BEAKER) 0.84 mg/dL 0.57-1.25 (test code = 358) GLUCOSE RANDOM 110 mg/dL 70-105 H (BEAKER) (test code = 652) CALCIUM (BEAKER) 8.8 mg/dL 8.4-10.2 (test code = 697) EGFR (BEAKER) (test 74 mL/min/1.73 ESTIMA ARON GFR IS code = 1092) sq m NOT ACCURATE CREATININE CLEARANCE IN PREDICTING GLOMERULAR FILTRATION RATE . ESTIMATED GFR I S NOT APPLICABLE FOR DIALYSIS PATIEN TS. CBC (HEMOGRAM ONLY)2017-01-31 10:50:00 Test Item Value Reference Range Interpretation Comments WHITE BLOOD CELL COUNT (BEAKER) 7.2 K/ L 3.5-10.5 (test code = 775) RED BLOOD CELL COUNT (BEAKER) 3.89 M/ L 3.93-5.22 L (test code = 761) HEMOGLOBIN (BEAKER) (test code = 11.6 GM/DL 11.2-15.7 410) HEMATOCRIT (BEAKER) (test code = 36.6 % 34.1-44.9 411) MEAN CORPUSCULAR VOLUME (BEAKER) 94.1 fL 79.4-94.8 (test code = 753) MEAN CORPUSCULAR HEMOGLOBIN 29.8 pg 25.6-32.2 (BEAKER) (test code = 751) MEAN CORPUSCULAR HEMOGLOBIN CONC 31.7 GM/DL 32.2-35.5 L (BEAKER) (test code = 752) RED CELL DISTRIBUTION WIDTH 13.1 % 11.7-14.4 (BEAKER) (test code = 412) PLATELET COUNT (BEAKER) (test 230 K/CU MM 150-450 code = 756) MEAN PLATELET VOLUME (BEAKER) 9.9 fL 9.4-12.3 (test code = 754) NUCLEATED RED BLOOD CELLS 0 /100 WBC 0-0 (BEAKER) (test code = 413) TISSUE [id number] 13:13:00Surgical Pathology Report Case: [id number] Authorizing Provider: Maury Mosley MD Collected: 10/01/2016 1206 Ordering Location: [facility] Received: 10/01/2016 1601 SERVICES Pathologist: Corinne Morales MD Specimens: A) - Breast, Right B) - Breast, Left C) - Breast, Left, left breast fat necrosis D) - Breast, Right, right breast fat necrosis E) - Abdomen, abdominal scar A. SKIN, RIGHT BREAST REGION, EXCISION: - SKIN AND DERMIS WITH CICATRIX - FIBROADIPOSE TISSUE B. SKIN, LEFT BREAST REGION, EXCISION: - SKIN AND DERMIS, NO PATHOLOGIC CHANGE C. BREAST, LEFT, FAT NECROSIS EXCISION: - FAT NECROSIS - STROMAL FIBROSIS - SKIN AND DERMIS WITH CICATRIX D. BREAST, RIGHT, FAT NECROSIS EXCISION: - FAT NECROSIS - STROMAL FIBROSIS - SKIN AND DERMIS WITH CICATRIX E. SKIN, ABDOMINAL REGION, EXCISION: - SKIN AND DERMIS WITH ACUTE AND CHRONIC INFLAMMATION AND ABSCESS FORMATION In the sections examined from all specimens, no malignancy is seen. CG/Julio. 98670L. 27247T. 36669Q. 56975 E. 96498Qgmecid of right breast cancer, hypertrophy abdominal scarA. Right breast; B. Left breast; C. Left breast fat necrosis; D. Rightbreast fat necrosis; E. Abdominal scarAll specimens are received labeled with the patient's information.Specimen A: Received in formalin labeled "breast, right" is a 124 gm, 13.5 x 7.0 x 3.5 cm mayes-white to yellow-jay irregular portion of fibroadipose tissue with an attached 12.0 x 6.5 cm pale jay wrinkled ellipse of skin. Sectioning reveals predominantly fibroadipose tissue. No discrete masses are identified. Taxi Driver Supervisor sections are submitted in cassettes A1-A4.Specimen B: Received in formalinlabeled "breast, left" is a 10.5 x 4.5 x 0.5 cm pale jay irregular wrinkled portion of skin. Sectioning reveals no discrete masses. Taxi Driver Supervisor sections are submitted in cassette B1. Specimen C: Received in formalin labeled "breast, left", description "left breast fat necrosis" is a 78 gm, 8.0 x 5.5 x 5.0 cm mayes-white to yellow-jay irregular portion of fibroadipose tissue with an attached 7.1 x 3.0 cm pale jay irregular wrinkled portion of skin. Sectioning reveals yellow-jay fat necrosis. No discrete masses are identified. Taxi Driver Supervisor sections are submitted in cassettes C1-C4. Specimen D: Received in formalin labeled "breast, right", description "right breast fat necrosis" is a 44 gm, 8.0 x7.0 x 2.5 cm mayes-white to yellow-jay irregular portion of fibroadipose tissue with an attached 6.0 x 1.0 cm pale jay wrinkled strip of skin. Sectioning reveals yellow-jay fat necrosis. No discrete masses are identified. Taxi Driver Supervisor sections are submitted in cassettes D1-D4. Specimen E: Received informalin labeled "abdomen", description "abdominal scar" is a 20.5 x 1.6 cm pale jay wrinkled strip of skin excised to a depth of 2.5 cm. Sectioning reveals focal fat necrosis and light jay mucoid material. No discrete masses are identified. Taxi Driver Supervisor sections are submitted in cassettes E1-E3. DB/Madan. - E. Performed.BASIC METABOLIC PANEL 2016-09-13 16:19:00 Test Item Value Reference Range Interpretation Comments SODIUM (BEAKER) 139 meq/L 136-145 (test code = 381) POTASSIUM (BEAKER) 3.9 meq/L 3.5-5.1 (test code = 379) CHLORIDE (BEAKER) 110 meq/L 98-107 H (test code = 382) CO2 (BEAKER) (test 23 meq/L 22-29 code = 355) BLOOD UREA NITROGEN 16 mg/dL 7-21 (BEAKER) (test code = 354) CREATININE (BEAKER) 0.86 mg/dL 0.57-1.25 (test code = 358) GLUCOSE RANDOM 94 mg/dL 70-105 (BEAKER) (test code = 652) CALCIUM (BEAKER) 8.7 mg/dL 8.4-10.2 (test code = 697) EGFR (BEAKER) (test 72 mL/min/1.73 ESTIMA ARON GFR IS code = 1092) sq m NOT ACCURATE CREATININE CLEARANCE IN PREDICTING GLOMERULAR FILTRATION RATE . ESTIMATED GFR I S NOT APPLICABLE FOR DIALYSIS PATIEN TS. CBC (HEMOGRAM ONLY)2016-09-13 16:05:00 Test Item Value Reference Range Interpretation Comments WHITE BLOOD CELL COUNT (BEAKER) 8.3 K/ L 4.0-10.0 (test code = 775) RED BLOOD CELL COUNT (BEAKER) 3.99 M/ L 4.00-5.00 L (test code = 761) HEMOGLOBIN (BEAKER) (test code = 12.4 GM/DL 12.0-15.0 410) HEMATOCRIT (BEAKER) (test code = 36.8 % 36.0-45.0 411) MEAN CORPUSCULAR VOLUME (BEAKER) 92.1 fL 82.0-99.0 (test code = 753) MEAN CORPUSCULAR HEMOGLOBIN 31.1 pg 27.0-33.0 (BEAKER) (test code = 751) MEAN CORPUSCULAR HEMOGLOBIN CONC 33.8 GM/DL 32.0-36.0 (BEAKER) (test code = 752) RED CELL DISTRIBUTION WIDTH 14.9 % 10.3-14.2 H (BEAKER) (test code = 412) PLATELET COUNT (BEAKER) (test 194 K/CU MM 150-430 code = 756) MEAN PLATELET VOLUME (BEAKER) 7.4 fL 6.5-10.5 (test code = 754) NUCLEATED RED BLOOD CELLS 0 /100 WBC 0-0 (BEAKER) (test code = 413) 0.00
[2022-05-26] MEDS ORDERED: KETOROLAC 30 MG/ML INJ ONE (11:40)
[2022-05-26] MEDS ORDERED: ONDANSETRON 4 MG/2 ML VIAL ONE (11:40)
[2022-05-26] MEDS ORDERED: NA CHLORIDE 0.9% 1,000 ML ONE (11:41)
[2022-05-26 11:57] LABS: Absolute Lymphocytes (CBC) 1.9 K/uL (0.7-4.9); Lymphocytes % 26.7 % (15.3-44.8); MCV 93.4 fL (80-100); MPV 8.1 fL (7.6-11.3); RBC Red Blood Cell Count 3.86 M/uL (3.86-4.86)
[2022-05-26 12:16] LABS: Albumin 2.9 g/dL (3.4-5.0); Bilirubin Total 0.3 mg/dL (0.2-1.0); Potassium 3.7 mmol/L (3.5-5.1); Protein, Total 6.8 g/dL (6.4-8.2)
[2022-05-26 12:36] LABS: SARS-COV-2 RT PCR NEGATIVE (NEGATIVE)
--- NOTE | 2022-05-26 12:49 | RAD REPORT ---
EXAM DESCRIPTION: CTAbdomen Pelvis W Contrast - 05/26/2022 12:35 pm CLINICAL HISTORY: ABD PAIN COMPARISON: Abdomen Pelvis W Contrast dated 09/24/2017; CT ABD PELVIS W CONTRAST dated 05/10/2013 TECHNIQUE: CT of the abdomen and pelvis was performed. All CT scans are performed using dose optimization technique as appropriate and may include automated exposure control or mA/KV adjustment according to patient size. FINDINGS: Lower chest: No acute abnormality. Liver: Hepatic steatosis. Biliary: No biliary ductal dilatation. Stomach: No significant focal abnormality. Duodenum: No significant focal abnormality. Pancreas: No significant abnormality. Spleen: No significant abnormality. Adrenal: No suspicious lesions. Kidney/ureter: No hydronephrosis. Punctate bilateral renal calculi. Retroperitoneum: No retroperitoneal adenopathy. Vascular: No aneurysm. Bowel: No significant focal abnormality. Normal appendix. Peritoneum: No ascites or free air. Small fat containing ventral hernia. Bladder: Grossly unremarkable. Reproductive: 5.7 cm left adnexal cyst. Bones: No acute fracture. Multilevel degenerative changes are present in the spine. Other: Mild body wall edema. IMPRESSION: No acute intra-abdominal or pelvic finding. 5.7 cm left adnexal cyst could be a source o f pain. This can be further evaluated with pelvic ultrasound. A 6 week follow-up pelvic ultrasound is recommended to ensure resolution.
--- NOTE | 2022-05-26 12:58 | EDPHYS ---
Physician Documentation [facility] Name: Crissy Mac Age: 51 yrs Sex: Female : 1970 Arrival Date: 05/26/2022 Time: 11:12 Bed 19 Private MD: MANGO Physician Saman Cardoso HPI: 05/26 13:35 This 51 yrs old Female presents to ER via Ambulatory with complaints of Pelvic Pain. kb 13:35 The patient presents with abdominal pain right lower quadrant. Onset: The kb symptoms/episode began/occurred 7 day(s) ago. The symptoms do not radiate. Associated signs and symptoms: Pertinent positives: diarrhea, nausea. The symptoms are described as constant. Modifying factors: The symptoms are alleviated by nothing, the symptoms are aggravated by nothing. Severity of pain: At its worst the pain was moderate in the emergency department the pain is unchanged. The patient has not experienced similar symptoms in the past. The patient has not recently seen a physician. 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 - Social history:: Smoking status: Patient denies any tobacco usage or history of. ROS: 13:35 Constitutional: Negative for fever, chills, and weight loss. kb 13:35 Abdomen/GI: Positive for abdominal pain, nausea, diarrhea. 13:35 All other systems are negative. Exam: 13:35 Constitutional: This is a well developed, well nourished patient who is awake, alert, kb and in no acute distress. Head/Face: Normocephalic, atraumatic. ENT: Moist Mucous membranes Cardiovascular: Regular rate and rhythm with a normal S1 and S2. No gallops, murmurs, or rubs. No pulse deficits. Respiratory: Respirations even and unlabored. No increased work of breathing. Talking in full sentences Skin: Warm, dry with normal turgor. Normal color. MS/ Extremity: Pulses equal, no cyanosis. Neurovascular intact. Full, normal range of motion. Neuro: Awake and alert, GCS 15, oriented to person, place, time, and situation. Moves all extremities. Normal gait. Psych: Awake, alert, with orientation to person, place and time. Behavior, mood, and affect are within normal limits. 13:35 Abdomen/GI: Inspection: abdomen appears normal, Bowel sounds: normal, Palpation: soft, in all quadrants, mild abdominal tenderness, in the right lower quadrant. Vital Signs: 11:28 BP 143 / 86; Pulse 86; Resp 16 S; Temp 98.8(TE); Pulse Ox 100% on R/A; Weight 129.27 kg aa5 (R); Height 5 ft. 5 in. (165.10 cm) (R); 12:30 BP 134 / 77; Pulse 68; Resp 18; Pulse Ox 99% on R/A; eh3 11:28 Body Mass Index 47.43 (129.27 kg, 165.10 cm) aa5 MDM: 11:29 Patient medically screened. kb 13:35 Data reviewed: vital signs, nurses notes. kb 13:36 Differential diagnosis: appendicitis, non-specific abd pain, Pyelonephritis, urinary kb tract infection, Ovarian cyst. Counseling: I had a detailed discussion with the patient and/or guardian regarding: the historical points, exam findings, and any diagnostic results supporting the discharge/admit diagnosis, lab results, radiology results, the need for outpatient follow up, a family practitioner, to return to the emergency department if symptoms worsen or persist or if there are any questions or concerns that arise at home. ED course: Patient is a 51-year-old female who presents for right lower quadrant/right pelvic pain that started 7 days ago. Reports nausea and diarrhea came on through the week. Denies fever. On exam patient has mild tenderness to right lower quadrant/right pelvic area. Serum labs and CT scan reviewed. Patient educated to follow-up with PCP/gynecology. Return precautions given. Verbal understanding received.. 05/26 11:29 Order name: CBC with Diff; Complete Time: 12:02 kb 05/26 11:29 Order name: CMP; Complete Time: 12:17 kb 05/26 11:29 Order name: Lipase; Complete Time: 12:17 kb 05/26 11:29 Order name: CT Abd/Pelvis - IV Contrast Only; Complete Time: 12:56 kb 05/26 11:30 Order name: COVID-19/FLU A+B; Complete Time: 12:42 kb 05/26 11: Order name: IV Saline Lock; Complete Time: 11:51 kb 05/26 11:29 Order name: Labs collected and sent; Complete Time: 11:51 kb Administered Medications: 11:51 Drug: NS 0.9% 1000 ml Route: IV; Rate: 1 bolus; Site: left antecubital; hb 13:23 Follow up: IV Status: Completed infusion; IV Intake: 800ml eh3 11:51 Drug: TORadol - (ketorolac) 15 mg Route: IVP; Site: left antecubital; hb 12:30 Follow up: Response: Pain is decreased eh3 11:51 Drug: Zofran (Ondansetron) 4 mg Route: IVP; Site: left antecubital; hb 12:30 Follow up: Response: No adverse reaction eh3 Disposition Summary: 05/26/22 12:58 Discharge Ordered Location: Home kb Condition: Stable kb Diagnosis - Nausea kb - Diarrhea, unspecified kb - Lower abdominal pain, unspecified kb Followup: kb - With: Emergency Department - When: As needed - Reason: Worsening of condition Followup: kb - With: Private Physician - When: 2 - 3 days - Reason: Recheck today's complaints, Continuance of care, Re-evaluation by your physician Discharge Instructions: - Discharge Summary Sheet kb - Pelvic Pain, Female, Shar-ay-Qtmu kb - Abdominal Pain, Adult, Edkq-[id number] kb - Diarrhea, Adult, Ijgn-ze-Scll kb Forms: - Medication Reconciliation Form kb - Thank You Letter kb - Antibiotic Education kb - Prescription Opioid Use kb Prescriptions: - Diclofenac Sodium 75 mg Oral tablet,delayed release (DR/EC) - take 1 tablet by ORAL route 2 times per day As needed; 30 tablet; Refills: 0, kb Product Selection Permitted - ondansetron 4 mg Oral - take 1 tablet by SUBLINGUAL route every 8 hours As needed; 15 tablet; Refills: kb 0, Product Selection Permitted Signatures: Dispatcher [employer] Haley Brown, ELIER ESPINOSA-Martita Cowan, RN RN aa5 Susanne Zavala, RN RN Alma Rajput RN RN eh3
--- NOTE | 2022-05-26 12:58 | ER ---
Nurse's Notes [facility] Name: Crissy Mac Age: 51 yrs Sex: Female : 1970 Arrival Date: 05/26/2022 Time: 11:12 Bed 19 Private MD: Diagnosis: Nausea;Diarrhea, unspecified;Lower abdominal pain, unspecified Presentation: 05/26 11:28 Chief complaint: Patient states: nausea,diarrhea, right pelvic pain since Saturday. aa5 Coronavirus screen: nausea. Ebola Screen: Patient denies travel to an Ebola-affected area in the 21 days before illness onset. Initial Sepsis Screen: Does the patient meet any 2 criteria? No. Patient's initial sepsis screen is negative. Does the patient have a suspected source of infection? No. Patient's initial sepsis screen is negative. Risk Assessment: Do you want to hurt yourself or someone else? Patient reports no desire to harm self or others. Onset of symptoms was May 2022. 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 - Social history:: Smoking status: Patient denies any tobacco usage or history of. Screenin:31 [facility] ED Fall Risk Assessment (Adult) Score/Fall Risk Level 0 - 2 = Low Risk hb Oriented to surroundings, Maintained a safe environment, Educated pt \T\ family on fall prevention, incl call for assistance when getting out of bed. Abuse screen: Denies threats or abuse. Denies injuries from another. Nutritional screening: No deficits noted. Tuberculosis screening: No symptoms or risk factors identified. Assessment: 11:31 General: Appears in no apparent distress. Behavior is calm, cooperative. Pain: Pain hb currently is 5 out of 10 on a pain scale. Neuro: Level of Consciousness is awake, alert, obeys commands, Oriented to person, place, time, situation. Cardiovascular: Patient's skin is warm and dry. Respiratory: Respiratory effort is even, unlabored, Respiratory pattern is regular, symmetrical. GI: Reports lower abdominal pain. : : Reports pelvic pain. EENT: No signs and/or symptoms were reported regarding the EENT system. Derm: Skin is pink, warm \T\ dry. Musculoskeletal: No signs and/or symptoms reported regarding the musculoskeletal system. 12:00 Reassessment: Patient appears in no apparent distress at this time. Patient and/or eh3 family updated on plan of care and expected duration. Pain level reassessed. Patient is alert, oriented x 3, equal unlabored respirations, skin warm/dry/pink. Vital Signs: 11:28 BP 143 / 86; Pulse 86; Resp 16 S; Temp 98.8(TE); Pulse Ox 100% on R/A; Weight 129.27 kg aa5 (R); Height 5 ft. 5 in. (165.10 cm) (R); 12:30 BP 134 / 77; Pulse 68; Resp 18; Pulse Ox 99% on R/A; eh3 11:28 Body Mass Index 47.43 (129.27 kg, 165.10 cm) aa5 ED Course: 11:12 Patient arrived in ED. rg4 11:17 Haley Crawford [facility]NP-C [facility] kb 11:18 Saman Cardoso MD is Attending Physician. kb 11:28 Triage completed. aa5 11:28 Arm band placed on. aa5 11:31 Patient has correct armband on for positive identification. hb 11:32 Susanne Zavala, RN is Primary Nurse. hb 11:50 Inserted saline lock: 20 gauge in left antecubital area, using aseptic technique. Blood hb collected. 11:51 COVID-19/FLU A+B Sent. hb 12:37 CT Abd/Pelvis - IV Contrast Only In Process Unspecified. EDMS 13:23 No provider procedures requiring assistance completed. IV discontinued, intact, eh3 bleeding controlled, No redness/swelling at site. Pressure dressing applied. Administered Medications: 11:51 Drug: NS 0.9% 1000 ml Route: IV; Rate: 1 bolus; Site: left antecubital; hb 13:23 Follow up: IV Status: Completed infusion; IV Intake: 800ml eh3 11:51 Drug: TORadol - (ketorolac) 15 mg Route: IVP; Site: left antecubital; hb 12:30 Follow up: Response: Pain is decreased eh3 11:51 Drug: Zofran (Ondansetron) 4 mg Route: IVP; Site: left antecubital; hb 12:30 Follow up: Response: No adverse reaction eh3 Medication: 11:31 VIS not applicable for this client. hb Intake: 13:23 IV: 800ml; Total: 800ml. eh3 Outcome: 12:58 Discharge ordered by . bill 13:24 Discharged to home ambulatory. eh3 13:24 Condition: stable 13:24 Discharge instructions given to patient, Instructed on discharge instructions, follow up and referral plans. medication usage, Demonstrated understanding of instructions, follow-up care, medications, Prescriptions given X 2. 13:24 Patient left the ED. eh3 Signatures: Dispatcher [employer] EDMS Haley Crawford, PROFESSIONAL SHOPPER-C PROFESSIONAL SHOPPER-Martita Cowan, RN RN aa5 Susanne Zavala, RN RN Gina Boss 4 Alma Rajput, RN RN 3
[2022-05-26 13:59] VITALS: TEMP 98.8
[2022-05-26 14:00] VITALS: BP 134/77; O2SAT 99
== END 2022-05-26 13:24 | disposition home or self-care (01) ==
LOC: ER 11:09
DX: R10.31 Right lower quadrant pain (principal); R19.7 Diarrhea, unspecified; R11.0 Nausea; Z20.822 Contact with and (suspected) exposure to COVID-19; Z88.0 Allergy status to penicillin
CPT/HCPCS: 96361; 85025; 36415; 83690; 80053; 0240U; 74177; 96375; 96374; 99284; Q9967; J7030; J2405